=== PATIENT | female | born 1985 ===

== ENCOUNTER 2021-02-28 09:57 | Emergency (ER) | payer OTHER, SELFPAY ==
--- NOTE | ~2021-02-28 | XR_ITS ---
EXAMINATION: XR SHOULDER, RIGHT CLINICAL INFORMATION: Right shoulder pain. COMPARISON: Chest radiographs dated 07/06/2015. TECHNIQUE: Three views of the right shoulder. FINDINGS: There is malalignment of the right acromioclavicular joint with the distal right clavicle position approximately 17 mm superior to the acromion. There is no acute fracture. The right glenohumeral joint is intact. The soft tissues are unremarkable. XR/XR shoulder RT min 2V IMPRESSION: Right acromioclavicular grade 2/3 separation of indeterminate age. No acute fracture.
[2021-02-28 10:48] VITALS: BP 155/98; PULSE 100; RESP 18; TEMP 37.1; O2SAT 95; BMI 35.4
--- NOTE | 2021-02-28 11:10 | ED_ITS ---
HPI - Extremity Problem General Chief complaint: Extremity Injury, Upper Stated complaint: R SHOULDER PAIN Time Seen by Provider: 02/28/21 10:20 Source: patient Mode of arrival: ambulatory Limitations: no limitations History of Present Illness HPI Narrative: 36 y/o female presents to the ER with right shoulder pain s/p fall last night. She reports drinking a lot of alcohol and then smoking a cigarette which she never does. She got lightheaded and dizzy and fell onto her right shoulder. She did not hit her head or lose consciosness. She woke up this morning with some bruising on her shoulder and pain with movement. No numbness, tingling or weakness. MD Complaint: joint paint Onset (ago): hour(s) Pain Consistency: constant Location: right and upper extremity Severity scale (1-10): 6 Quality: aching Radiation: none Relieving factors: immobilization and rest Exacerbating factors: range of motion and palpation Associated symptoms: denies other symptoms Related Data Home Medications Medication Instructions Recorded Confirmed fluticasone propionate 50 INTRANASAL 04/10/20 08/27/20 mcg/actuation nasal spray,suspension loratadine 10 mg tablet 10 mg PO DAILY 04/10/20 08/27/20 sodium chloride 0.65 % nasal spray 2 spray INTRANASAL Q2H PRN 04/10/20 08/27/20 aerosol trazodone 50 mg tablet 50 mg PO BEDTIME PRN 08/27/20 08/27/20 Previous Rx's Medication Instructions Recorded blood sugar diagnostic (Freestyle #10 ea 08/04/20 [employer]) blood-glucose meter (FreeStyle #1 ea 08/05/20 Flash System) metformin 500 mg tablet 500 mg PO BID #60 tab 08/23/20 blood-glucose meter (FreeStyle #1 ea 08/27/20 Lite Meter) lancets 28 gauge (FreeStyle #100 ea 08/27/20 Lancets) omeprazole 20 mg capsule,delayed 20 mg PO DAILY 90 Days #90 cap 09/23/20 release cyclobenzaprine 10 mg tablet 10 mg PO BEDTIME 30 Days #30 tab 11/01/20 sennosides 8.6 mg tablet (Senna 17.2 mg PO BEDTIME PRN 30 Days #60 11/01/20 Laxative) tab phentermine 37.5 mg tablet 37.5 mg PO DAILY 30 Days #30 tab 01/12/21 ibuprofen 800 mg tablet 800 mg PO TID PRN #90 tab 01/26/21 ibuprofen 600 mg tablet 600 mg PO Q8H PRN #14 tab 02/28/21 Allergies Allergy/AdvReac Type Severity Reaction Status Date / Time No Known Allergies Allergy Verified 08/27/20 14:42 Review of Systems Review of Systems: Constitutional: No Fever, No Chills ENT/Mouth: No sore throat, No Rhinorrhea, No Swallowing Difficulty Eyes: No Eye Pain, No Swelling, No Redness Cardiovascular: No Chest Pain, No SOB Gastrointestinal: + Nausea, No Vomiting, No Diarrhea, No abdominal Pain Genitourinary: No Dysuria, No Urinary Frequency, No Hematuria Musculoskeletal: + joint pain, No Myalgias Skin: + Skin Lesions, No rash Neuro: No Weakness, No Numbness, No Dizziness, + Headache Psych: + Anxiety/Panic, No Depression Heme/Lymph: + Bruising PMFSH Past Medical History Medical History Acid reflux Diabetes Diabetes Kidney stone Lower abdominal pain Surgical History History of appendectomy History of dilatation and curettage Status post panniculectomy Tubal ligation status Family History Family History Father No problems noted. Mother No problems noted. Social History Social History (Updated 08/27/20 @ 14:44 by Ana Winter MD) Alcohol intake: current Alcohol intake frequency: holidays/special occasions only Alcohol type: wine Advance Directives: No Advance Directives Information Provided: No Patient : No Physical Exam Vital Signs: Vital Signs: Last Vital Signs Temp 98.8 F 02/28/21 10:48 Pulse 100 02/28/21 10:48 Resp 18 02/28/21 10:48 BP 155/98 H 02/28/21 10:48 Pulse Ox 95 02/28/21 10:48 Body Mass Index 35.4 Appearance: Alert. Oriented X3. No acute distress. HEENT: normal inspection CVS: Normal heart rate and rhythm. Pulses normal. Respiratory: No respiratory distress. Skin: Skin warm and dry. Normal skin color. Normal skin turgor. No rashes. Extremities: right shoulder with minor abrasion laterally and small area of ecchymosis posteriorly. AC joint with palpable separation. she is able to abduct her shoulder but with discomfort. NV intact distally. Neuro: Oriented X 3. No motor deficit. No sensory deficit. Course Course Course Narrative: 36 y/o female presenting with right shoulder pain s/p fall. XR with grade AC joint separation. Sling ordered as well as NSAIDS. She will follow up with Orthopedics. Stable for d/c home with outpatient follow up Critical Care Time Critical Care Time Critical Care Time: No Discharge Plan Discharge Clinical Impression: Acromioclavicular joint separation, type 2 Qualifiers: Encounter type: initial encounter Laterality: right Qualified Code(s): S43.101A - Unspecified dislocation of right acromioclavicular joint, initial encounter Patient Disposition: Home, Self-Care Instructions: Acromioclavicular Separation (ED) Additional Instructions: Wear the sling until you are seen by the [facility]. Use ice several times per day as needed for pain. Take the prescribed anti-inflammatory as needed for pain. If you develop new or worsening symptoms call 911 or come back to the ER for further evaluation. Prescriptions: New ibuprofen 600 mg tablet 600 mg PO Q8H PRN (Reason: pain) Qty: 14 RF: 0 No Action metformin 500 mg tablet 500 mg PO BID Qty: 60 RF: 0 omeprazole 20 mg capsule,delayed release(DR/EC) 20 mg PO DAILY 90 Days Qty: 90 RF: 3 sennosides [Senna Laxative] 8.6 mg tablet 17.2 mg PO BEDTIME PRN (Reason: constipation) 30 Days Qty: 60 RF: 4 cyclobenzaprine 10 mg tablet 10 mg PO BEDTIME 30 Days Qty: 30 RF: 1 phentermine 37.5 mg tablet 37.5 mg PO DAILY 30 Days Qty: 30 RF: 0 ibuprofen 800 mg tablet 800 mg PO TID PRN (Reason: for cramps) Qty: 90 RF: 3 sodium chloride 0.65 % aerosol,spray 2 spray intranasal Q2H PRNRF: 0 loratadine 10 mg tablet 10 mg PO DAILY RF: 0 fluticasone propionate 50 mcg/actuation spray,suspension intranasal RF: 0 (DME) Freestyle [employer] Strip See Rx Instructions .ROUTE .MEDSUPPLY Qty: 10 RF: 0 (DME) blood-glucose meter [FreeStyle Flash System] Kit See Rx Instructions .ROUTE .MEDSUPPLY Qty: 1 RF: 0 trazodone 50 mg tablet 50 mg PO BEDTIME PRNRF: 0 (DME) blood-glucose meter [FreeStyle Lite Meter] Kit See Rx Instructions .ROUTE .MEDSUPPLY Qty: 1 RF: 0 (DME) lancets [FreeStyle Lancets] 28 gauge misc See Rx Instructions .ROUTE .MEDSUPPLY Qty: 100 RF: 11 Referrals: Calos Gavin PA-C [Physician Screen Tender Helper] - 3 days Stand Alone Forms: Work/School Release
[2021-02-28] MEDS: Ibuprofen 600 MG TABLET PO (11:20)
[2021-02-28 11:52] VITALS: RESP 18
== END 2021-02-28 11:56 | disposition home or self-care (01) ==
PROVIDERS: Emergency Provider Emergency Medicine; PCP Internal Medicine
DX: S43.101A Unspecified dislocation of right acromioclavicular joint, initial encounter (principal); M25.511 Pain in right shoulder; R42 Dizziness and giddiness; X58.XXXA Exposure to other specified factors, initial encounter; Y93.9 Activity, unspecified; Y92.9 Unspecified place or not applicable; Y99.9 Unspecified external cause status; Z79.899 Other long term (current) drug therapy
CPT/HCPCS: 73030; 99283; 99284

== ENCOUNTER 2021-03-02 10:44 | Emergency (ER) | payer OTHER, SELFPAY ==
[2021-03-02 11:36] VITALS: BP 140/92; PULSE 97; RESP 18; TEMP 36.6; O2SAT 98; BMI 35.4
--- NOTE | 2021-03-02 12:34 | ED_ITS ---
HPI - Extremity Injury (Upper) General Chief Complaint: Extremity Injury, Upper Stated Complaint: rt shoulder pain Time Seen by Provider: 03/02/21 12:29 Source: patient Mode of arrival: ambulatory Limitations: language barrier (Cameroonian-speaking) History of Present Illness HPI narrative: 30-year-old female presenting to the ER with complaints of right shoulder pain after shoe had a fall on 02/27/2021. She was seen here on 02/28/2021 and was diagnosed with right AC grade 2/3 separation of indeterminate age no acute fracture. She was given Motrin and a sling although she reports no symptomatic relief and she is asking for something stronger as her appointment for the Orthopedic is on the . She reports that she also called her primary care provider and there is no appointment until June. She is asking for another referral to a different orthopedic because she reports that they gave her an appointment for 03/10/2021 and she wants a sooner appointment. She denies any new injuries complaints or concerns at this time. MD complaint: injury to: right and shoulder Onset (ago): day(s) (4 days) Other injuries: none Handedness: right Severity: severe Severity scale (1-10): >10 Relieving factors: none Exacerbating factors: movement of extremity Context: fall Associated symptoms: denies other symptoms Treatments prior to arrival: NSAIDS and other (Shoulder immobilizer) Related Data Home Medications Medication Instructions Recorded Confirmed fluticasone propionate 50 INTRANASAL 04/10/20 08/27/20 mcg/actuation nasal spray,suspension loratadine 10 mg tablet 10 mg PO DAILY 04/10/20 08/27/20 sodium chloride 0.65 % nasal spray 2 spray INTRANASAL Q2H PRN 04/10/20 08/27/20 aerosol trazodone 50 mg tablet 50 mg PO BEDTIME PRN 08/27/20 08/27/20 Previous Rx's Medication Instructions Recorded blood sugar diagnostic (Freestyle #10 ea 08/04/20 [employer]) blood-glucose meter (FreeStyle #1 ea 08/05/20 Flash System) metformin 500 mg tablet 500 mg PO BID #60 tab 08/23/20 blood-glucose meter (FreeStyle #1 ea 08/27/20 Lite Meter) lancets 28 gauge (FreeStyle #100 ea 08/27/20 Lancets) omeprazole 20 mg capsule,delayed 20 mg PO DAILY 90 Days #90 cap 09/23/20 release cyclobenzaprine 10 mg tablet 10 mg PO BEDTIME 30 Days #30 tab 11/01/20 sennosides 8.6 mg tablet (Senna 17.2 mg PO BEDTIME PRN 30 Days #60 11/01/20 Laxative) tab phentermine 37.5 mg tablet 37.5 mg PO DAILY 30 Days #30 tab 01/12/21 ibuprofen 800 mg tablet 800 mg PO TID PRN #90 tab 01/26/21 ibuprofen 600 mg tablet 600 mg PO Q8H PRN #14 tab 02/28/21 acetaminophen 500 mg tablet 1,000 mg PO QID PRN #14 tab 03/02/21 (Tylenol Extra Strength) ibuprofen 800 mg tablet 800 mg PO Q8H PRN #14 tab 03/02/21 oxycodone 5 mg tablet 5 mg PO Q6H PRN #14 tab 03/02/21 Allergies Allergy/AdvReac Type Severity Reaction Status Date / Time No Known Allergies Allergy Verified 08/27/20 14:42 Review of Systems Review of Systems: Constitutional : No Weight loss, No Fever, No Chills, No Night Sweats, No Fatigue, No Malaise ENT/Mouth : No Hearing loss, No Ear Pain, No Nasal Congestion, No Sinus Pain, No Hoarseness, No sore throat, No Rhinorrhea, No Swallowing Difficulty Eyes: No Eye Pain, No Swelling, No Redness, No Foreign Body, No Discharge, No Vision Changes Cardiovascular : No Chest Pain, No SOB, No Dyspnea on Exertion, No Orthopnea, No Edema, No Palpitations Respiratory : No Cough, No Sputum, No Wheezing, No Smoke Exposure, No Dyspnea Gastrointestinal : No Nausea, No Vomiting, No Diarrhea, No Constipation, No abdominal Pain, No Hematochezia, No Melena Genitourinary : no irregular bleeding, No Dysuria, No Urinary Frequency, No Hematuria, No Urinary Incontinence, No Urgency, No Flank Pain, No Urinary Flow Changes, No Hesitancy Musculoskeletal : + joint pain, No Myalgias, No Joint Swelling Skin : No Skin Lesions, No rash Neuro : No Weakness, No Numbness, No Paresthesias, No Loss of Consciousness, No Dizziness, No Headache Psych : No Anxiety/Panic, No Depression, No SI/HI/AH/VH, No Social Issues, Heme/Lymph: No Bruising, No Bleeding,No Lymphadenopathy Endocrine : No Polyuria, No Polydipsia, No Temperature Intolerance Yes all other systems are reviewed and are negative [facility] Past Medical History Attestation statement: The following information was validated with the patient. Medical History Acid reflux Diabetes Diabetes Kidney stone Lower abdominal pain Surgical History History of appendectomy History of dilatation and curettage Status post panniculectomy Tubal ligation status Family History Family History Father No problems noted. Mother No problems noted. Social History Social History Alcohol intake: current Alcohol intake frequency: holidays/special occasions only Alcohol type: wine Advance Directives: No Patient : No Physical Exam Vital Signs: Vital Signs: Last Vital Signs Temp 98 F 03/02/21 11:36 Pulse 97 03/02/21 11:36 Resp 18 03/02/21 11:36 BP 140/92 H 03/02/21 11:36 Pulse Ox 98 03/02/21 11:36 Body Mass Index 35.4 vital signs have been reviewed as normal and appeared to be correct. Blood pressure hypertensive 140/92. Heart rate normal. Respiration rate normal. Temperature normal. Oxygen saturation normal. Appearance: Alert. Oriented X3. No acute distress. Head: Normal external exam. Normocephalic. Atraumatic. Eyes: PERRLA. EOMI. Conjunctiva and sclera normal. Eyelids normal. ENT: Pharynx normal. Uvula midline. Moist mucous membranes. Neck: Normal inspection. Neck supple. FROM. No adenopathy. No meningeal signs. CVS: Normal heart rate and rhythm. Heart sound normal. Pulses normal throughout. No murmurs/rales/gallops. Respiratory: No respiratory distress. Painless inspiration. Breath sounds normal. No wheezes/rales/rhonchi noted. Chest nontender. No accessory muscle usage noted or decreased air movement noted. Back: Full range of motion noted. No rashes/lesion/induration/fluctuance or signs of infection noted. Skin: Skin warm and dry. Normal skin color. Normal skin turgor. No kelby hes/lesions/lacerations noted. Extremities: Patient with tenderness to palpation to the right shoulder with limited range of motion due to pain. Otherwise no obvious ligamentous or tendon injury. All other Extremities exhibit normal range of motion and nontender. Neuro: Oriented X 3. No motor deficit. No sensory deficit. Reflexes normal. Normal steady gait. No focal neuro deficits noted. Vascular: + radial pulses/+ 2 distal pedal pulses/+2 dorsalis pedis b/l. Normal cap refill. No cyanosis noted to upper extremity nails and lower extremity toes nails. Course Course Course Narrative: Patient with an AC separation grade 2 she has a follow-up appointment on the with Orthopedics requesting a new Orthopedics for sooner day though I told her that that is probably the soonest states she will be able to get. She also tried to follow-up with her primary they do not have an open appointment until June. Will DC home with symptomatic treatment and instructions to follow-up with orthopedics as scheduled and to return if any new or worsening symptoms. Patient understands agrees with this plan. MDM - Extremity Injury (Upper) Medical Records Attestation: I reviewed the patient's medical records. Discharge Plan Discharge Clinical Impression: Acromioclavicular joint separation, type 2, Pain Patient Disposition: Home, Self-Care Instructions: Acromioclavicular Separation (ED) Additional Instructions: [facility] at [address] [place] [facility], [facility] [address] at [phone] is another Orthopedics that you can call although we usually prefer use our Orthopedics Prescriptions: New ibuprofen 800 mg tablet 800 mg PO Q8H PRN (Reason: pain) Qty: 14 RF: 0 acetaminophen [Tylenol Extra Strength] 500 mg tablet 1,000 mg PO QID PRN (Reason: fever or pain) Qty: 14 RF: 0 oxycodone 5 mg tablet 5 mg PO Q6H PRN (Reason: pain) Qty: 14 RF: 0 No Action metformin 500 mg tablet 500 mg PO BID Qty: 60 RF: 0 omeprazole 20 mg capsule,delayed release(DR/EC) 20 mg PO DAILY 90 Days Qty: 90 RF: 3 sennosides [Senna Laxative] 8.6 mg tablet 17.2 mg PO BEDTIME PRN (Reason: constipation) 30 Days Qty: 60 RF: 4 cyclobenzaprine 10 mg tablet 10 mg PO BEDTIME 30 Days Qty: 30 RF: 1 phentermine 37.5 mg tablet 37.5 mg PO DAILY 30 Days Qty: 30 RF: 0 ibuprofen 800 mg tablet 800 mg PO TID PRN (Reason: for cramps) Qty: 90 RF: 3 ibuprofen 600 mg tablet 600 mg PO Q8H PRN (Reason: pain) Qty: 14 RF: 0 sodium chloride 0.65 % aerosol,spray 2 spray intranasal Q2H PRNRF: 0 loratadine 10 mg tablet 10 mg PO DAILY RF: 0 fluticasone propionate 50 mcg/actuation spray,suspension intranasal RF: 0 (DME) Freestyle [employer] Strip See Rx Instructions .ROUTE .MEDSUPPLY Qty: 10 RF: 0 (DME) blood-glucose meter [FreeStyle Flash System] Kit See Rx Instructions .ROUTE .MEDSUPPLY Qty: 1 RF: 0 trazodone 50 mg tablet 50 mg PO BEDTIME PRNRF: 0 (DME) blood-glucose meter [FreeStyle Lite Meter] Kit See Rx Instructions .ROUTE .MEDSUPPLY Qty: 1 RF: 0 (DME) lancets [FreeStyle Lancets] 28 gauge misc See Rx Instructions .ROUTE .MEDSUPPLY Qty: 100 RF: 11 Referrals: Charly Alberto MD [Physician] - 2 days Ana Che MD [Primary Care Provider] - 2 days Stand Alone Forms: Work/School Release Interventions: ED Discharge Assessment Last Done: 03/02/21 12:48 Discharge Date/Time: 03/02/21 12:49 Print Language: Cameroonian
== END 2021-03-02 12:49 | disposition home or self-care (01) ==
PROVIDERS: Emergency Provider Emergency Medicine; PCP Internal Medicine
DX: S43.101A Unspecified dislocation of right acromioclavicular joint, initial encounter (principal); M25.511 Pain in right shoulder; E11.9 Type 2 diabetes mellitus without complications; W01.0XXA Fall on same level from slipping, tripping and stumbling without subsequent striking against object, initial encounter; Y93.9 Activity, unspecified; Y92.9 Unspecified place or not applicable; Y99.9 Unspecified external cause status; Z79.899 Other long term (current) drug therapy
CPT/HCPCS: 99283

== ENCOUNTER 2021-03-03 07:28 | Outpatient (REF) | payer OTHER, SELFPAY ==
[2021-03-03 08:12] LABS: Hematocrit 38.2 % (37-47); Hemoglobin 12.3 g/dl (12.0-16.0); Mean Corpuscular HGB Conc 32.2 g/dl (31.0-35.0); Mean Corpuscular Hemoglobin 27.6 pg (27.0-33.0); Mean Corpuscular Volume 85.8 fL (80-98); Platelet Count 261 X10*3/uL (160-400); Red Blood Count 4.45 X10*6/uL (4.20-5.50); Red Cell Distribution Width 13.1 % (11.0-16.0); White Blood Count 7.3 X10*3/uL (4.8-10.8)
[2021-03-03 08:27] LABS: Estimated Average Glucose 192 mg/dL; Hemoglobin A1c % 8.3 %
[2021-03-03 09:01] LABS: Alanine Aminotransferase 23 U/L (0-31); Albumin Level 3.9 g/dL (3.5-5.0); Alkaline Phosphatase 106 U/L (39-117); Anion Gap 16 (12-20); Aspartate Amino Transferase 21 U/L (5-31); Bilirubin Total 0.5 mg/dL (0.0-1.0); Blood Urea Nitrogen 12 mg/dL (9-16); Calcium 8.7 mg/dL (8.4-10.2); Carbon Dioxide 19 mmol/L (22-29); Chloride 108 mmol/L (96-108); Cholesterol 221 mg/dL; Estimated Glomerular Filt Rate > 60; Glucose Random 213 mg/dL (60-115); HDL Cholesterol 57 mg/dL; LDL Cholesterol Calculated 145 mg/dl; Potassium 4.6 mmol/L (3.3-5.1); Sodium 138 mmol/L (135-145); Total Protein 6.8 g/dL (6.5-8.0); Triglycerides 96 mg/dL
[2021-03-03 09:04] LABS: Free T4 (Free Thyroxine) 0.96 ng/dL (0.71-1.85); Insulin 4 uU/mL (2-29); Thyroid Stimulating Hormone 3.22 uIU/mL (0.32-4.0)
[2021-03-04 19:17] LABS: Lutenizing Hormone 9.8 mIU/mL
[2021-03-06 16:02] LABS: Thyroid Stimulating Immunoglob <89 % baseline (<140)
[2021-03-07 09:21] LABS: Thyroglobulin Antibodies 1 IU/mL (< or = 1); Thyroid Peroxidase Antibodies 1 IU/mL (<9)
[2021-03-07 12:47] LABS: Triiodothyronine T3 Reverse 14 ng/dL (8-25)
[2021-03-08 20:57] LABS: Thyrotropin Receptor Antibody <1.00 IU/L (<=2.00)
[2021-03-09 22:06] LABS: Progesterone 0.1 ng/mL
[2021-03-11 13:21] LABS: Testosterone, Free 4.1 pg/mL (0.1-6.4); Testosterone, Total 25 ng/dL (2-45)
[2021-03-12 21:51] LABS: Estradiol, Ultrasensitive 47 pg/mL
[2021-03-18 22:22] LABS: Dihydrotestosterone 5 ng/dL (< OR = 20)
== END 2021-03-03 07:29 | disposition home or self-care (01) ==
LOC: HO.LAB 07:28
PROVIDERS: PCP Internal Medicine; Visit Provider Nurse Practitioner Adult Health
DX: E66.01 Morbid (severe) obesity due to excess calories (principal); E11.9 Type 2 diabetes mellitus without complications; E55.9 Vitamin D deficiency, unspecified
CPT/HCPCS: 36415; 80053; 80061; 82642; 82670; 82681; 83001; 83002; 83036; 83520; 83525; 84144; 84402; 84403; 84439; 84443; 84445; 84481; 84482; 85027; 86376; 86800

== ENCOUNTER 2021-03-13 07:28 | Outpatient (REF) | payer OTHER, SELFPAY | END 2021-03-13 07:29 | disposition home or self-care (01) | LOC: HO.HOSX 07:28 | PROVIDERS: Visit Provider Physician Assistant | DX: Z13.89 Encounter for screening for other disorder (principal) ==

== ENCOUNTER 2021-06-02 20:24 | Emergency (ER) | payer OTHER, SELFPAY ==
--- NOTE | ~2021-06-02 | XR_ITS ---
EXAMINATION: XR CHEST CLINICAL INFORMATION: Covid. Shortness of breath COMPARISON: 07/06/2015 TECHNIQUE: Frontal view of the chest was obtained. FINDINGS: Normal symmetric lung volumes. Left lower lobe streaky opacity, likely subsegmental atelectasis. No pleural effusion. No pneumothorax. Cardiomediastinal silhouette and pulmonary vascularity are within normal limits. No acute osseous abnormalities. XR/XR chest 1V IMPRESSION: No acute findings
[2021-06-02 23:04] VITALS: BP 149/105; PULSE 124; RESP 20; TEMP 37.8; O2SAT 99; BMI 34.3
[2021-06-02 23:37] LABS: COVID-19 Test Positive (Negative); IDNOW Serial# 9DD0AD1C
--- NOTE | 2021-06-03 02:33 | ED.URI ---
HPI - URI/Sore Throat General Chief Complaint: Upper Respiratory Symptoms Stated Complaint: +home covid test sob chest congestion Time Seen by Provider: 06/03/21 02:32 Source: patient Mode of arrival: ambulatory Limitations: no limitations History of Present Illness HPI Narrative: 36-year-old female otherwise healthy came in for 3 days of shortness of breath, generalized body ache, fever. Despite patient took 2 Pfizer vaccination for COVID she took a home test which was positive. Patient came to the emergency room confirmed positive for COVID. No other sick contact. Related Data Home Medications Medication Instructions Recorded Confirmed fluticasone propionate 50 INTRANASAL 04/10/20 03/03/21 mcg/actuation nasal spray,suspension sodium chloride 0.65 % nasal spray 2 spray INTRANASAL Q2H PRN 04/10/20 03/03/21 aerosol trazodone 50 mg tablet 50 mg PO BEDTIME PRN 08/27/20 03/03/21 Previous Rx's Medication Instructions Recorded lancets 28 gauge (FreeStyle #100 ea 08/27/20 Lancets) omeprazole 20 mg capsule,delayed 20 mg PO DAILY 90 Days #90 cap 09/23/20 release cyclobenzaprine 10 mg tablet 10 mg PO BEDTIME 30 Days #30 tab 11/01/20 acetaminophen 500 mg tablet 1,000 mg PO QID PRN #14 tab 03/02/21 (Tylenol Extra Strength) ibuprofen 800 mg tablet 800 mg PO Q8H PRN #14 tab 03/02/21 atorvastatin 20 mg tablet 20 mg PO BEDTIME 90 Days #90 tab 03/03/21 lisinopril 5 mg tablet 5 mg PO DAILY 90 Days #90 tab 03/03/21 loratadine 10 mg tablet 10 mg PO DAILY 90 Days #90 tab 03/03/21 oxycodone 5 mg tablet 5 mg PO Q6H PRN 15 Days #60 tab 03/03/21 phentermine 37.5 mg tablet 37.5 mg PO DAILY 30 Days #30 tab 04/01/21 blood sugar diagnostic (FreeStyle #50 ea 04/02/21 Test) blood-glucose meter (FreeStyle #1 ea 05/01/21 Lite Meter) sennosides 8.6 mg tablet (Senna 17.2 mg PO BEDTIME PRN 30 Days #60 05/01/21 Laxative) tab metformin 500 mg tablet 500 mg PO BID #60 tab 05/22/21 albuterol sulfate 90 mcg/actuation 1 inh INHALATION QID PRN #8.5 g 06/03/21 aerosol inhaler Allergies Allergy/AdvReac Type Severity Reaction Status Date / Time No Known Allergies Allergy Verified 03/03/21 13:25 Review of Systems Review of Systems: All other systems are reviewed and are negative Constitutional: Reports as per HPI and Reports no additional constitutional complaints Eyes: Reports as per HPI and Reports no additional eye complaints Reports system reviewed and no additional complaints, except as documented Cardiovascular: Reports as per HPI and Reports no additional cardiovascular complaints Respiratory: Reports as per HPI and Reports no additional respiratory complaints Gastrointestinal: Reports as per HPI and Reports no additional gastrointestinal complaints Genitourinary: Reports no additional female genitourinary complaints Musculoskeletal: Reports no additional musculoskeletal complaints Skin/Breast: Reports system reviewed and no additional complaints, except as docu Psychiatric: Reports no additional psychiatric complaints Endocrine: Reports no additional endocrine complaints Hematologic/Lymphatic: Reports no additional hematologic/lymphatic complaints Allergic/Immunologic: Reports no additional allergic/immunologic complaints Reports system reviewed and no additional complaints, except as documented and Reports Abnormal speech present [facility] Past Medical History Medical History 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 Mother No problems noted. Social History Social History Housing: Apartment Alcohol intake: current Alcohol intake frequency: holidays/special occasions only Alcohol type: wine Patient Tobacco Use Status: Former Tobacco user Tobacco use type: Cigarette e-Cigarette/Vaping Use: Never Used Second Hand Smoke Exposure: No Advance Directives: No Advance Directives Information Provided: No service: No Current occupational status: employed Current occupational exposures/hazards: No Physical Exam Vital Signs: Vital Signs: Last Vital Signs Temp 100.0 F 06/02/21 23:04 Pulse 124 H 06/02/21 23:04 Resp 20 06/02/21 23:04 BP 149/105 H 06/02/21 23:04 Pulse Ox 99 06/02/21 23:04 BMI result Body Mass Index 34.3 Vital signs have been reviewed as appeared to be correct. Blood pressure normal. Heart rate elevated. Respiration rate normal. Temperature normal. Oxygen saturation normal. Appearance: Alert. Oriented X3. No acute distress. Head: Normal external exam. Normocephalic. Atraumatic. No Plascencia signs noted. No raccoon eyes noted Eyes: PERRLA. EOMI. Conjunctiva and sclera normal. Eyelids normal. ENT: TM's Normal. Pharynx normal. Uvula midline. Moist mucous membranes. No trismus noted. No drooling noted. No muffled voice noted. Neck: Normal inspection. Neck supple. FROM. No adenopathy. Thyroid Normal. No meningeal signs. No neck mass noted. CVS: Tachycardia, Heart sound normal. No murmurs noted. Pulses normal throughout. Respiratory: No respiratory distress. Painless inspiration. Breath sounds normal. No wheezes/rales/rhonchi noted. Chest nontender. No accessory muscle usage noted or decreased air movement noted. Abdomen: Soft and nontender. Bowel sounds normal in all 4 quadrants. No distention noted. No organomegaly noted. No visible injury noted. Back: No CVA tenderness. Full range of motion noted. Skin: Skin warm and dry. Normal skin color. Normal skin turgor. No rashes/lesions/lacerations noted. Extremities: No lower extremity edema. Extremities exhibit normal range of motion. Extremities nontender. Neuro: Oriented X 3. Cranial nerve exam: II-XII are grossly intact No motor deficit. No sensory deficit. Reflexes normal. Course Course Course Narrative: Assessment and plan. 36-year-old female was COVID-19 infection, physical exam stable patient was normal O2 sat of 99% on room air respiratory rate of 20 patient is tachycardic because low-grade fever. History of sporadic wheezing will prescribe albuterol. Patient does not meet criteria for hospitalization,nor monoclonal antibodies therapy MDM - URI/Sore Throat Lab Data Attestation: I reviewed the patient's lab results. Labs: Lab Results 06/02/21 Range/Units 23:26 COVID-19 ([facility]) Positive A (Negative) COVID-19 Clin Com See Note Imaging Data Chest x-ray: Attestation: I personally reviewed and interpreted this imaging study as follows: Radiologist's impression: No acute pathology. Discharge Plan Discharge Clinical Impression: COVID-19 virus infection Patient Disposition: Home, Self-Care Instructions: COVID-19 (Coronavirus Disease 2019) (ED) Additional Instructions: Frequent handwashing, wears a face mask at all times, keep social distancing, drink plenty of fluids, use Tylenol [id number] if needed for fever or pain. Return if any worsening of shortness of breath. Prescriptions: New albuterol sulfate 90 mcg/actuation HFA aerosol inhaler 1 inh inhalation QID PRN (Reason: shortness of breath or wheezing) Qty: 8.5 RF: 0 No Action omeprazole 20 mg capsule,delayed release(DR/EC) 20 mg PO DAILY 90 Days Qty: 90 RF: 3 cyclobenzaprine 10 mg tablet 10 mg PO BEDTIME 30 Days Qty: 30 RF: 1 phentermine 37.5 mg tablet 37.5 mg PO DAILY 30 Days Qty: 30 RF: 0 (DME) FreeStyle Test Strip See Rx Instructions .Route Qty: 50 RF: 11 sennosides [Senna Laxative] 8.6 mg tablet 17.2 mg PO BEDTIME PRN (Reason: constipation) 30 Days Qty: 60 RF: 4 (DME) blood-glucose meter [FreeStyle Lite Meter] Kit See Rx Instructions .ROUTE .MEDSUPPLY Qty: 1 RF: 0 metformin 500 mg tablet 500 mg PO BID Qty: 60 RF: 0 ibuprofen 800 mg tablet 800 mg PO Q8H PRN (Reason: pain) Qty: 14 RF: 0 acetaminophen [Tylenol Extra Strength] 500 mg tablet 1,000 mg PO QID PRN (Reason: fever or pain) Qty: 14 RF: 0 sodium chloride 0.65 % aerosol,spray 2 spray intranasal Q2H PRNRF: 0 fluticasone propionate 50 mcg/actuation spray,suspension intranasal RF: 0 trazodone 50 mg tablet 50 mg PO BEDTIME PRNRF: 0 (DME) lancets [FreeStyle Lancets] 28 gauge misc See Rx Instructions .ROUTE .MEDSUPPLY Qty: 100 RF: 11 lisinopril 5 mg tablet 5 mg PO DAILY 90 Days Qty: 90 RF: 1 atorvastatin 20 mg tablet 20 mg PO BEDTIME 90 Days Qty: 90 RF: 1 loratadine 10 mg tablet 10 mg PO DAILY 90 Days Qty: 90 RF: 1 oxycodone 5 mg tablet 5 mg PO Q6H PRN (Reason: pain) 15 Days Qty: 60 RF: 0 Referrals: Ana Che MD [Primary Care Provider] - 2 days Stand Alone Forms: Work/School Release
[2021-06-03] MEDS: Acetaminophen 325 MG TABLET 650 MG PO (02:49)
[2021-06-03] MEDS: Albuterol Sulfate 90 MCG 8 GM INHALER 2 PUFF INHALE (03:37)
== END 2021-06-03 03:39 | disposition home or self-care (01) ==
PROVIDERS: Emergency Provider Emergency Medicine; PCP Internal Medicine
DX: U07.1 COVID-19 (principal); R06.02 Shortness of breath; I10 Essential (primary) hypertension; E11.9 Type 2 diabetes mellitus without complications; E78.00 Pure hypercholesterolemia, unspecified; Z79.02 Long term (current) use of antithrombotics/antiplatelets; Z79.899 Other long term (current) drug therapy
CPT/HCPCS: 71045; 87635; 99283; 99284

== ENCOUNTER 2023-02-07 14:21 | Outpatient (AMB) | payer OTHER, SELFPAY ==
--- NOTE | 2023-02-07 14:23 | MHC.PC.OV ---
Vital Signs 02/07/23 14:27 Height 5 ft 3 in Weight 188 lb BMI 33.3 BP 112/80 Blood Pressure Location Lt brachial Position Sitting Intake Visit Reasons: Annual Exam Intake Note: Patient here for a physical exam Stamping Mill Tender Required: No Accompanied by: Self / Same As Patient Allergies No Known Allergies Allergy (Verified 02/07/23 14:41) Medication List - Last Reconciled 02/07/23 by Ana Winter MD albuterol sulfate 90 mcg/actuation 1 inh inhalation QID PRN atorvastatin 20 mg PO BEDTIME 90 days blood sugar diagnostic (FreeStyle Test strips) Use 1 test strip twice a day blood-glucose meter (FreeStyle Lite Meter kit) As directed cyclobenzaprine 10 mg PO BEDTIME 30 days dulaglutide (Trulicity) 0.75 mg (0.5 mL) subcut QWEEK fluticasone propionate 50 mcg/actuation 1 spray intranasal DAILY 30 days ibuprofen 800 mg PO Q8H PRN lancets (FreeStyle Lancets) Use 1 lancet once a day lisinopril 5 mg PO DAILY 90 days loratadine 10 mg PO DAILY 90 days metformin 1,000 mg PO BID 90 days omeprazole 20 mg PO DAILY 90 days polymyxin B sulf-trimethoprim 10,000 unit- 1 mg/mL 1 drp ophthalmic (eye) Q4H 7 days semaglutide (Ozempic) 0.25 mg (0.368 mL) subcut QWEEK 30 days sennosides (Senna Laxative) 17.2 mg (2 x 8.6 mg) PO BEDTIME PRN 30 days zolpidem 5 mg PO BEDTIME PRN 30 days Tobacco use date assessed: 11/03/22 Dental Screening Dental Screen Date: 02/07/23 Did you have a dental visit in the last 12 months?: Yes Did you have a dental problem in the last 6 months where you did not have access to dental care?: No Was dental information given to patient?: Patient has dentist HPI HPI Comments History of Present Illness Details This is a 37-year-old female with diabetes mellitus type 2 that comes for her physical exam. A1c not on goal and I will replace Trulicity with Ozempic. Pap smear was over 3 years ago. No chest pain or shortness of breath. 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 Mother Diabetes mellitus Essential hypertension Stroke Hypothyroidism Coronary artery disease Mental health disorder Social History Housing: Apartment Alcohol intake: current Alcohol intake frequency: holidays/special occasions only Alcohol type: wine Patient Tobacco Use Status: Former Tobacco user Tobacco use type: Cigarette e-Cigarette/Vaping Use: Never Used Second Hand Smoke Exposure: No service: No Current occupational status: employed Current occupational exposures/hazards: No Cognitive needs: No Hearing needs: No Vision needs: No Questionnaire Thrive Questionnaire Date Thrive assessed: 11/03/22 TR-7 AMB Questionnaire TR-7 Date TR - 7 assessed: 11/03/22 Source: Developed by Drs. Luiz Karimi, Maine Caputo, Dieudonne Smith and colleagues, with an educational sreekanth from [employer]. Review of Systems Const All systems reviewed & are unremarkable except as noted in HPI and below Eyes Reports no additional complaints, Denies change in vision and Denies other visual disturbances Card Denies chest pain at rest, Denies chest pain with activity, Denies edema, Denies irregular heart rhythm, Denies claudication, Denies dyspnea, Denies dyspnea on exertion, Denies orthopnea, Denies paroxysmal nocturnal dyspnea and Denies slow heart rate Resp Denies cough, Denies dyspnea and Denies dyspnea on exertion GI Denies abdominal pain, Denies change in bowel habits, Denies excessive flatus, Denies nausea and Denies vomiting Denies urinary incontinence, Denies urinary hesitancy and Denies urinary urgency Musc Denies abnormal gait, Denies atrophy, Denies deformity and Denies limited range of motion Skin/Breast Denies bleeding lesions, Denies changing lesions and Denies rash Neuro Denies abnormal gait and Denies lack of coordination Physical exam (Primary Care) Vital Signs: Last Vital Signs BP 112/80 02/07/23 14:27 BMI result Body Mass Index 33.3 Tobacco/Smoking Status: Tobacco use Status Tobacco use date assessed 11/03/22 02/07/23 14:24 Patient Tobacco Use Status Former Tobacco user 02/07/23 14:24 Tobacco use type Cigarette 02/07/23 14:24 e-Cigarette/Vaping Use Never Used 02/07/23 14:24 Thrive Assessment: Date of Thrive Assessment Date Thrive assessed 11/03/22 02/07/23 14:24 Const Orientation/consciousness: patient oriented x3 HENMT Head: Yes normal to inspection, Yes normocephalic and Yes atraumatic Ears: external ears normal Eyes General: appearance normal, both eyes and all related structures Eyelids: Yes eyelids normal Conjunctivae: conjunctivae normal Neck Neck: Yes normal visual inspection and Yes supple Resp Effort & Inspection: normal respiratory effort Auscultation: clear to auscultation bilaterally Cardio Jugular venous distension: no JVD Rate: regular rate Rhythm: regular rhythm Heart sounds: S1 normal heart sound present and S2 normal heart sound present GI Inspection: Yes normal to inspection Palpation (GI): Soft to palpation and nontender Auscultation: normal bowel sounds Skin General skin exam: no rashes or lesions noted Neuro General: patient oriented x3 and no focal motor deficits Extrem General: Yes full ROM Psych Appearance: grossly normal Results AMB Hemoglobin A1c AMB Hemoglobin A1c 7.3 % Last Edit by MONICA Martin on 02/07/23 14:35 Results Reviewed Results Reviewed: Laboratory Last Values Hgb A1c (Clinic) 7.3 % (4.0-6.0) H 02/07/23 14:31 Assessment and Plan Assessment & Plan (1) Physical exam: Code(s): Z00.00 - Encounter for general adult medical examination without abnormal findings Plan: Repeat in a year. (2) Diabetes mellitus: Code(s): E11.9 - Type 2 diabetes mellitus without complications Qualifiers: Diabetes mellitus type: type 2 Diabetes mellitus long term care social worker insulin use: without prison use Diabetes mellitus complication status: with hyperglycemia Qualified Code(s): E11.65 - Type 2 diabetes mellitus with hyperglycemia Plan: Continue metformin. Replace Trulicity with Ozempic. A1c goal is equal or less than 7% Orders: Orders AMB Hemoglobin A1c Today E11.9 - Type 2 diabetes mellitus without complications Lipid Panel Today E78.5 - Hyperlipidemia, unspecified Vitamin D 25-OH Total Today E55.9 - Vitamin D deficiency, unspecified Comprehensive [place]. Panel Fast Today E11.65 - Type 2 diabetes mellitus with hyperglycemia Referrals STATEMENT CLERKS MANAGER Referral Z12.4 - Encounter for screening for malignant neoplasm of cervix Medications: Changed From ibuprofen 800 mg PO Q8H PRN 14 tabs 0RF pain To ibuprofen 800 mg PO Q8H 30 days PRN 90 tabs 0RF pain Refilled semaglutide (Ozempic) for 4 weeks 0.25 mg (0.368 mL) subcut QWEEK 30 days 2 mL 0RF E11.65 - Type 2 diabetes mellitus with hyperglycemia sennosides (Senna Laxative) 17.2 mg (2 x 8.6 mg) PO BEDTIME 30 days PRN 60 tabs 4RF constipation Discontinued dulaglutide (Trulicity) Discontinued Reason: Patient Completed Course 0.75 mg (0.5 mL) subcut QWEEK 2 mL 0RF E11.65 - Type 2 diabetes mellitus with hyperglycemia Coding Level of Care Code Est Pt Prev Care 18-39y(28631) Diagnoses Physical exam Z00.00 Type 2 diabetes mellitus with hyperglycemia, without long-term current use of insulin E11.65 Diabetes mellitus type: type 2 Diabetes mellitus prison insulin use: without long term care social worker use Diabetes mellitus complication status: with hyperglycemia Time Spent (min) 33
[2023-02-07 14:27] VITALS: BP 112/80; BMI 33.3
== END 2023-02-07 14:56 | disposition home or self-care (01) ==
PROVIDERS: PCP Internal Medicine; Visit Provider Internal Medicine
DX: Z00.00 Encounter for general adult medical examination without abnormal findings (principal); E11.65 Type 2 diabetes mellitus with hyperglycemia; E11.9 Type 2 diabetes mellitus without complications
CPT/HCPCS: 83036; 99395

== ENCOUNTER 2023-05-10 13:07 | Outpatient (REF) | payer OTHER, SELFPAY ==
[2023-05-13 02:04] LABS: HPV mRNA E6/E7 rflx Not Detected (Not Detected)
== END 2023-05-10 13:08 | disposition home or self-care (01) ==
LOC: HO.LNP 13:07
PROVIDERS: PCP Internal Medicine; Visit Provider Obstetrics & Gynecology
DX: Z01.419 Encounter for gynecological examination (general) (routine) without abnormal findings (principal); Z11.3 Encounter for screening for infections with a predominantly sexual mode of transmission; Z11.51 Encounter for screening for human papillomavirus (HPV); Z11.59 Encounter for screening for other viral diseases; Z20.2 Contact with and (suspected) exposure to infections with a predominantly sexual mode of transmission; Z98.51 Tubal ligation status
CPT/HCPCS: 87624; 88142; 99386

== ENCOUNTER 2023-05-10 13:07 | Outpatient (AMB) | payer OTHER, SELFPAY ==
--- NOTE | 2023-05-10 13:28 | A.OFFVIS_ITS ---
Intake Vital Signs 05/10/23 13:29 Height 5 ft 3 in Weight 187 lb 6.287 oz BMI 33.2 BP 118/70 Intake Visit Reasons: New patient Annual Intake Note: c/o of vaginal itch Continuous Improvement Manager Required: Yes Continuous Improvement Manager Language: Salon/Spa Manager Name: Marizol ANDERSON Information Interpreted: non-clinical & clinical Mobile Ui Developer: Mobile Ui Developer Present (Marizol ANDERSON) Accompanied by: Self / Same As Patient Allergies No Known Allergies Allergy (Verified 05/10/23 13:32) HPI HPI Comments History of Present Illness Details Presenting for annual exam. No complaints. The patient is interested in STD screening Last Pap/HPV ? 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 Mother Diabetes mellitus Essential hypertension Stroke Hypothyroidism Coronary artery disease Mental health disorder Social History Housing: Apartment Alcohol intake: current Alcohol intake frequency: holidays/special occasions only Alcohol type: wine Patient Tobacco Use Status: Former Tobacco user Tobacco use type: Cigarette e-Cigarette/Vaping Use: Never Used Second Hand Smoke Exposure: No service: No Current occupational status: employed Current occupational exposures/hazards: No Cognitive needs: No Hearing needs: No Vision needs: No Female Reproductive History Menstrual Date of last menstrual period: 04/12/23 Date of last pap smear: 02/19/13 Review of Systems Const All systems reviewed & are unremarkable except as noted in HPI and below Card Reports as per HPI Resp Reports as per HPI GI Reports as per HPI and Reports no additional complaints Reports as per HPI Physical Exam Vital Signs: Last Vital Signs BP 118/70 05/10/23 13:29 BMI result Body Mass Index 33.2 Const General: cooperative, healthy appearing and comfortable Chest Chest palpation & inspection: normal inspection of the chest and normal palpation of entire chest wall Breast/axilla inspection: normal inspection of the breasts and normal inspection of the axillae Breast/axilla palpation: normal palpation of the breasts, normal palpation of the axillae and no axillary lymphadenopathy Resp Effort & Inspection: normal respiratory effort Auscultation: clear to auscultation bilaterally Percussion: percussion normal Cardio Palpation: normal PMI Rate: regular rate Rhythm: regular rhythm Heart sounds: no murmurs and no rubs Peripheral pulses: Peripheral pulses 2+ throughout GI Inspection: Yes normal to inspection Palpation (GI): Soft to palpation, nontender, no guarding, not rigid and No hepatosplenomegaly present Percussion: Yes normal to percussion Auscultation: normal bowel sounds Rectal Exam - Female: deferred General: Yes bladder normal to palpation External Female Exam: No lesion Speculum Exam - Vagina: normal appearance of the vagina, normal palpation, normal vaginal discharge and not erythematous Speculum Exam - Cervix: normal appearance of the cervix and normal palpation Bimanual exam- vagina & uterus: normal bimanual exam, normal palpation, uterine size normal, bladder normal to palpation, consistency normal and normal palpation Bimanual Exam- Adnexa, other: normal adnexae, no masses and no tenderness Assessment & Plan Assessment & Plan (1) Well woman exam: Code(s): Z01.419 - Encounter for gynecological examination (general) (routine) without ab normal findings Plan: Cotesting done. Mammogram ordered. Counseled the patient about the recommended dietary allowance of 1000 mg of Calcium & 600 IU of vitamin D. The patient was instructed to perform monthly self-breast exams and to schedule an annual exam in a year; All questions answered and the patient verbalized understanding. Instructed the patient to schedule annual exam in a year (2) Screen for STD (sexually transmitted disease): Code(s): Z11.3 - Encounter for screening for infections with a predominantly sexual mode of transmission Plan: STD screening tests done includes: BV panel for trichomonas, GC/CT will send patient for serology std screening for HIV, RPR, Hep b s Ag, HepC Ab. Instructions given the patient to schedule a follow-up appointment for repeat serology screen in 6 months for possible false negatives. Orders: Orders Hepatitis B Surface Antigen Today Z20.2 - Contact with and (suspected) exposure to infections with a predominantly sexual mode of transmission Hepatitis C Antibody Today Z20.2 - Contact with and (suspected) exposure to infections with a predominantly sexual mode of transmission Bacterial Vaginosis Panel Today Z20.2 - Contact with and (suspected) exposure to infections with a predominantly sexual mode of transmission Syphilis Screen Today Z20.2 - Contact with and (suspected) exposure to infections with a predominantly sexual mode of transmission MM screening mammo BI Today Z12.31 - Encounter for screening mammogram for malignant neoplasm of breast Coding Level of Care Code New Pt Prev Care 40-64y([id number]) Diagnoses Well woman exam Z01.419 Screen for STD (sexually transmitted disease) Z11.3
[2023-05-10 13:29] VITALS: BP 118/70; BMI 33.2
== END 2023-05-10 16:22 | disposition home or self-care (01) ==
PROVIDERS: PCP Internal Medicine; Visit Provider Obstetrics & Gynecology
DX: Z01.419 Encounter for gynecological examination (general) (routine) without abnormal findings (principal); Z11.3 Encounter for screening for infections with a predominantly sexual mode of transmission
CPT/HCPCS: 99386

== ENCOUNTER 2023-05-10 13:57 | Outpatient (REF) | payer OTHER, SELFPAY ==
[2023-05-11 05:22] LABS: CT PCR NOT DETECTED (Not Detect.); NG PCR NOT DETECTED (Not Detect.)
[2023-05-11 08:38] LABS: Syphilis Screen Nonreactive (Nonreactive)
[2023-05-11 09:05] LABS: HBsAGNum1 0.62 S/CO (0.00-0.99); Hepatitis B Surface Antigen Negative (Negative); ~HepC Num1 0.09 S/CO (0.00-0.79); ~Hepatitis C Antibody Nonreactive (Nonreactive)
[2023-05-11 12:21] LABS: BV Int Neg Control Negative (Negative); BV Int Pos Control Positive (Positive)
== END 2023-05-10 13:58 | disposition home or self-care (01) ==
LOC: HO.LAB 13:57
PROVIDERS: PCP Internal Medicine; Visit Provider Obstetrics & Gynecology
DX: Z01.419 Encounter for gynecological examination (general) (routine) without abnormal findings (principal); Z11.3 Encounter for screening for infections with a predominantly sexual mode of transmission; Z20.2 Contact with and (suspected) exposure to infections with a predominantly sexual mode of transmission; Z11.59 Encounter for screening for other viral diseases
CPT/HCPCS: 0353U; 86780; 86803; 87340; 87480; 87510; 87660

== ENCOUNTER 2023-06-15 07:17 | Outpatient (REF) | payer OTHER, SELFPAY ==
[2023-06-15 08:37] LABS: Creatinine Urine 296.07 mg/dL; Microalbum/Creatinine Ratio Ur 38.1 ug/mg cr (<30)
[2023-06-15 08:41] LABS: Alanine Aminotransferase 18 U/L (0-31); Alkaline Phosphatase 86 U/L (39-117); Anion Gap 14 (12-20); Aspartate Amino Transferase 14 U/L (5-31); Bilirubin Total 0.4 mg/dL (0.0-1.0); Blood Urea Nitrogen 14 mg/dL (9-16); Carbon Dioxide 23 mmol/L (22-29); Chloride 103 mmol/L (96-108); Cholesterol 223 mg/dL (<200); Estimated Glomerular Filt Rate > 60; Glucose Fasting 184 mg/dL (60-99); HDL Cholesterol 66 mg/dL (>40); LDL Cholesterol Calculated 135 mg/dL (<100); Potassium 3.9 mmol/L (3.3-5.1); Sodium 136 mmol/L (135-145); Total Protein 7.1 g/dL (6.5-8.0); Triglycerides 113 mg/dL (<150)
[2023-06-15 08:56] LABS: Vitamin D 25-OH Total 33.8 ng/mL (>30)
[2023-06-15 16:20] LABS: Influenza A PCR NEGATIVE (Negative); Influenza B PCR NEGATIVE (Negative); Resp Syncy Virus RNA Qual PCR NEGATIVE (Negative); SARS COV2 PCR INHOUSE NEGATIVE (Negative)
== END 2023-06-15 07:18 | disposition home or self-care (01) ==
LOC: HO.LAB 07:17
PROVIDERS: PCP Internal Medicine; Visit Provider Internal Medicine
DX: E11.9 Type 2 diabetes mellitus without complications (principal); E55.9 Vitamin D deficiency, unspecified; E78.5 Hyperlipidemia, unspecified; E78.00 Pure hypercholesterolemia, unspecified; R09.89 Other specified symptoms and signs involving the circulatory and respiratory systems; Z11.52 Encounter for screening for COVID-19; Z20.828 Contact with and (suspected) exposure to other viral communicable diseases
CPT/HCPCS: 0241U; 36415; 80053; 80061; 82043; 82306; 82570

== ENCOUNTER 2023-06-15 14:42 | Outpatient (AMB) | payer OTHER, SELFPAY ==
--- NOTE | 2023-06-15 14:58 | A.OFFPC_ITS ---
Vital Signs 06/15/23 15:02 Height 5 ft 3 in Weight 185 lb BMI 32.8 BP 122/80 Blood Pressure Location Lt brachial Position Sitting Intake Visit Reasons: DM follow up Intake Note: Patient here for a follow up DM Communications Marketing Intern Required: No Accompanied by: Self / Same As Patient Allergies No Known Allergies Allergy (Verified 06/15/23 15:10) Medication List - Last Reconciled 06/15/23 by Ana Winter MD albuterol sulfate 90 mcg/actuation 1 inh inhalation QID PRN atorvastatin 20 mg PO BEDTIME 90 days blood sugar diagnostic (FreeStyle Test strips) Use 1 test strip twice a day blood-glucose meter (FreeStyle Lite Meter kit) As directed cyclobenzaprine 10 mg PO BEDTIME 30 days fluticasone propionate 50 mcg/actuation 1 spray intranasal DAILY 30 days ibuprofen 800 mg PO Q8H PRN 30 days lancets (FreeStyle Lancets) Use 1 lancet once a day lisinopril 5 mg PO DAILY 90 days loratadine 10 mg PO DAILY 90 days metformin 1,000 mg PO BID 90 days omeprazole 20 mg PO DAILY 90 days polymyxin B sulf-trimethoprim 10,000 unit- 1 mg/mL 1 drp ophthalmic (eye) Q4H 7 days semaglutide (Ozempic) 0.25 mg (0.368 mL) subcut QWEEK 30 days sennosides (Senna Laxative) 17.2 mg (2 x 8.6 mg) PO BEDTIME PRN 30 days terconazole 0.8% 1 appful vaginal BEDTIME 3 days zolpidem 5 mg PO BEDTIME PRN 30 days Tobacco use date assessed: 06/15/23 Dental Screening Dental Screen Date: 06/15/23 Did you have a dental visit in the last 12 months?: Yes Did you have a dental problem in the last 6 months where you did not have access to dental care?: No Was dental information given to patient?: Patient has dentist HPI HPI Comments History of Present Illness Details This is a 38-year-old female with diabetes mellitus type 2, hypertension, pure hypercholesterolemia and GERD that comes today for follow-up on her conditions. A1c is elevated and I increase Ozempic. Blood pressure st able. LDL not on goal and I will refill atorvastatin because she was not taking it. GERD stable with PPIs. No chest pain or shortness of breath. [facility] Medical History Separation of acromioclavicular joint due to injury Class 1 drug-induced obesity with body mass index (BMI) of 34.0 to 34.9 in adult Seasonal allergic rhinitis due to pollen Primary insomnia Constipation by delayed colonic transit Pure hypercholesterolemia GERD (gastroesophageal reflux disease) Essential hypertension Diabetes mellitus Lower abdominal pain Kidney stone Diabetes Diabetes Surgical History Tubal ligation status Status post panniculectomy History of appendectomy History of dilatation and curettage Family History Father No problems noted. Mother Diabetes mellitus Essential hypertension Stroke Hypothyroidism Coronary artery disease Mental health disorder Social History Housing: Apartment Alcohol intake: current Alcohol intake frequency: holidays/special occasions only Alcohol type: wine Patient Tobacco Use Status: Former Tobacco user Tobacco use type: Cigarette e-Cigarette/Vaping Use: Never Used Second Hand Smoke Exposure: No service: No Current occupational status: employed Current occupational exposures/hazards: No Cognitive needs: No Hearing needs: No Vision needs: No Questionnaire PHQ-9 Over the last 2 weeks, how often have you been bothered by any of the following problems? 1. Little interest or pleasure in doing things: not at all 2. Feeling down, depressed, or hopeless: not at all 3. Trouble falling or staying asleep, or sleeping too much: not at all 4. Feeling tired or having little energy: not at all 5. Poor appetite or overeating: not at all 6. Feeling bad about yourself - or that you are a failure or have let yourself or your family down: not at all 7. Trouble concentrating on things, such as reading the newspaper or watching television: not at all 8. Moving or speaking so slowly that other people could have noticed. Or the opposite - being so fidgety or restless that you have been moving around a lot more than usual: not at all 9. Thoughts that you would be better off or of hurting yourself in some way: not at all Total score: 0 Depression Screening Interpretation: Negative Depression Screening Done: Yes 80205 - PHQ-9 Billing: Yes Source: Developed by Drs. Luiz Karimi, Maine Caputo, Dieudonne Smith and colleagues, with an educational sreekanth from [employer]. Thrive Questionnaire Date Thrive assessed: 06/15/23 I am a: Patient What is your living situation today?: I have a steady place to live Within the past 12 months, did the food you bought not last and you didn't have the money to get more?: Never true Within the past 12 months, did you worry whether your food would run out before you got money to buy more?: Never true Do you have trouble paying for medicines?: No Do you have trouble getting transportation to medical appointments?: No Do you have trouble paying your heating and electricity bill?: No Do you have trouble taking care of your child, family member or friend?: No Do you have trouble with day-to-day activities such as bathing, preparing meals, shopping, managing finances, etc.?: No Are you currently unemployed and looking for a job?: No Are you interested in more education?: No Please select the resources that you would like help with: None AUDIT C Alcohol Use Questionnaire (AUDIT-C) 1. How often do you have a drink containing alcohol?: Monthly or less 2. How many drinks containing alcohol do you have on a typical day when you are drinking?: 1 or 2 3. How often do you have six or more drinks on one occasion?: Never Total Score: 1 Score Reviewed/Action Taken: No TR-7 AMB Questionnaire TR-7 Date TR - 7 assessed: 06/15/23 Feeling nervous, anxious, or on edge: 1 = Several days Not being able to stop or control worryin = Not at all Worrying too much about different things: 0 = Not at all Trouble relaxin = Not at all Being so restless that it is hard to sit still: 0 = Not at all Becoming easily annoyed or irritable: 0 = Not at all Feeling afraid as if something awful might happen: 0 = Not at all Total TR-7 score (0-4 normal; 5-9 mild; 10-14 moderate; 15-21 severe): 1 Source: Developed by Drs. Luiz Karimi, Maine Caputo, Dieudonne Smith and colleagues, with an educational sreekanth from [employer]. TR-7 Assessment Billing TR-7 Assessment Tool: TR-7 Assessment 45918 Review of Systems Const All systems reviewed & are unremarkable except as noted in HPI and below Eyes Reports no additional complaints, Denies change in vision and Denies other visual disturbances Card Denies chest pain at rest, Denies chest pain with activity, Denies edema, Denies irregular heart rhythm, Denies claudication, Denies dyspnea, Denies dyspnea on exertion, Denies orthopnea, Denies paroxysmal nocturnal dyspnea and Denies slow heart rate Resp Denies cough, Denies dyspnea and Denies dyspnea on exertion GI Denies abdominal pain, Denies change in bowel habits, Denies excessive flatus, Denies nausea and Denies vomiting Denies urinary incontinence, Denies urinary hesitancy and Denies urinary urgency Musc Denies abnormal gait, Denies atrophy, Denies deformity and Denies limited range of motion Skin/Breast Denies bleeding lesions, Denies changing lesions and Denies rash Neuro Denies abnormal gait, Denies behavioral changes and Denies lack of coordination Psych Denies behavioral changes Physical exam (Primary Care) Vital Signs: Last Vital Signs BP 122/80 06/15/23 15:02 BMI result Body Mass Index 32.8 Tobacco/Smoking Status: Tobacco use Status Tobacco use date assessed 06/15/23 06/15/23 15:06 Patient Tobacco Use Status Former Tobacco user 06/15/23 14:59 Tobacco use type Cigarette 06/15/23 14:59 e-Cigarette/Vaping Use Never Used 06/15/23 14:59 PHQ-9: PHQ-9 Score PHQ-9: Total score 0 06/15/23 15:20 Depression Screening Interpretation: Negative Thrive Assessment: Date of Thrive Assessment Date Thrive assessed 06/15/23 06/15/23 15:06 Eyes General: appearance normal, both eyes and all related structures Eyelids: Yes eyelids normal Conjunctivae: conjunctivae normal Neck Neck: Yes normal visual inspection and Yes supple Resp Effort & Inspection: normal respiratory effort Auscultation: clear to auscultation bilaterally Cardio Jugular venous distension: no JVD Rate: regular rate Rhythm: regular rhythm Heart sounds: S1 normal heart sound present and S2 normal heart sound present Extrem General: Yes full ROM Office Procedures Flu Questionnaire Does the patient have a severe egg allergy?: No Results AMB Hemoglobin A1c AMB Hemoglobin A1c 7.6 % Last Edit by MONICA Martin on 06/15/23 15:2 0 Immunizations flu vacc [id number] 6mos up(PF) 60 mcg(15 mcgx4)/0.5 mL IM syringe Performing Provider: Ana Winter MD [facility] Documented (not given) by: MONICA Martin on 06/15/23 15:06 Reason Not Given: Patient Refused Results Reviewed Results Reviewed: Laboratory Last Values Hgb A1c (Clinic) 7.6 % (4.0-6.0) H 06/15/23 14:57 Assessment and Plan Assessment & Plan (1) Diabetes mellitus: Code(s): E11.9 - Type 2 diabetes mellitus without complications Qualifiers: Diabetes mellitus type: type 2 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 Increase Ozempic. A1c goal is equal or less than 7%. (2) Essential hypertension: Code(s): I10 - Essential (primary) hypertension Plan: Continue lisinopril. Blood pressure goal is equal or less than 130/80. (3) Pure hypercholesterolemia: Code(s): E78.00 - Pure hypercholesterolemia, unspecified Plan: Restart statins. LDL goal is less than 70. (4) GERD (gastroesophageal reflux disease): Code(s): K21.9 - Gastro-esophageal reflux disease without esophagitis Plan: Continue PPIs as needed. Orders: Orders SARS-CoV2/FLU/RSV Today R09.89 - Other specified symptoms and signs involving the circulatory and respiratory systems Lipid Panel 4 Months E78.5 - Hyperlipidemia, unspecified Microalbumin, Random (w Creat) 4 Months E11.9 - Type 2 diabetes mellitus without complications Comprehensive [place]. Panel Fast 4 Months E11.9 - Type 2 diabetes mellitus without complications AMB Hemoglobin A1c Today E11.9 - Type 2 diabetes mellitus without complications Influenza [id number] Immunization Today Z23 - Encounter for immunization Vitamin D 25-OH Total 4 Months E55.9 - Vitamin D deficiency, unspecified Medications: New semaglutide 0.5 mg (0.736 mL) subcut QWEEK 3.68 mL 6RF 30 days E11.9 - Type 2 diabetes mellitus without complications Refilled atorvastatin 20 mg PO BEDTIME 90 tabs 1RF 90 days Discontinued semaglutide (Ozempic) for 4 weeks Discontinued Reason: Patient Completed Course 0.25 mg (0.368 mL) subcut QWEEK 30 days 2 mL 0RF E11.65 - Type 2 diabetes mellitus with hyperglycemia Coding Level of Care Code Est Pt Level 4 (65596) Diagnoses Type 2 diabetes mellitus with hyperglycemia, without long-term current use of insulin E11.65 Diabetes mellitus type: type 2 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
[2023-06-15 15:02] VITALS: BP 122/80; BMI 32.8
== END 2023-06-15 15:21 | disposition home or self-care (01) ==
PROVIDERS: PCP Internal Medicine; Visit Provider Internal Medicine
DX: E11.65 Type 2 diabetes mellitus with hyperglycemia (principal); E11.9 Type 2 diabetes mellitus without complications; I10 Essential (primary) hypertension; E78.00 Pure hypercholesterolemia, unspecified; K21.9 Gastro-esophageal reflux disease without esophagitis
CPT/HCPCS: 83036; 99214

== ENCOUNTER 2024-03-01 06:23 | Outpatient (REF) | payer OTHER, SELFPAY ==
[2024-03-01 08:11] LABS: Creatinine Urine 134.18 mg/dL; Microalbum/Creatinine Ratio Ur 7.4 ug/mg cr (<30)
[2024-03-01 08:19] LABS: Alanine Aminotransferase 38 U/L (0-31); Albumin Level 4.1 g/dL (3.5-5.0); Alkaline Phosphatase 93 U/L (39-117); Anion Gap 11 (12-20); Aspartate Amino Transferase 22 U/L (5-31); Bilirubin Total 0.5 mg/dL (0.0-1.0); Blood Urea Nitrogen 12 mg/dL (9-16); Calcium 9.3 mg/dL (8.4-10.2); Carbon Dioxide 26 mmol/L (22-29); Chloride 107 mmol/L (96-108); Cholesterol 139 mg/dL (<200); Estimated Glomerular Filt Rate > 60; Glucose Fasting 168 mg/dL (60-99); HDL Cholesterol 57 mg/dL (>40); LDL Cholesterol Calculated 66 mg/dL (<100); Potassium 4.4 mmol/L (3.3-5.1); Sodium 140 mmol/L (135-145); Total Protein 6.9 g/dL (6.5-8.0); Triglycerides 84 mg/dL (<150)
[2024-03-01 08:28] LABS: Vitamin D 25-OH Total 36.5 ng/mL (>30)
== END 2024-03-01 06:24 | disposition home or self-care (01) ==
LOC: HO.LAB 06:23
PROVIDERS: PCP Internal Medicine; Visit Provider Internal Medicine
DX: E55.9 Vitamin D deficiency, unspecified (principal); E11.65 Type 2 diabetes mellitus with hyperglycemia; E78.5 Hyperlipidemia, unspecified
CPT/HCPCS: 36415; 80053; 80061; 82043; 82306; 82570

== ENCOUNTER 2024-03-05 14:14 | Outpatient (REF) | payer OTHER, SELFPAY ==
[2024-03-05 15:15] LABS: MANUAL DIFF FLAG NO
[2024-03-05 15:26] LABS: Basophils Percent Auto 0.3 % (0-2); Eosinophils Absolute Auto 0.1 X10*3/uL (0.0-0.4); Hematocrit 39.3 % (37.0-47.0); Imm Gran Abs Auto 0.04 X10*3/uL (0.00-0.03); Imm Gran Pct Auto 0.4 % (0.0-0.4); Lymphocytes Absolute Auto 2.2 X10*3/uL (1.2-4.9); Lymphocytes Percent Auto 21.8 % (20-40); Mean Corpuscular HGB Conc 33.1 g/dl (31.0-35.0); Mean Corpuscular Hemoglobin 29.7 pg (27.0-33.0); Mean Corpuscular Volume 89.7 fL (80.0-98.0); Mean Platelet Volume 9.4 fL (9.4-12.3); Monocytes Absolute Auto 0.9 X10*3/uL (0.1-1.2); Monocytes Percent Auto 8.6 % (2-11); Neutrophils Absolute Auto 6.8 x10*3/uL (2.0-8.3); Neutrophils Percent Auto 67.9 % (45-73); Platelet Count 317 X10*3/uL (160-400); Red Blood Count 4.38 X10*6/uL (4.20-5.50); Red Cell Distribution Width 12.8 % (11.0-16.0); White Blood Count 9.9 X10*3/uL (4.8-10.8)
[2024-03-05 16:19] LABS: Thyroid Stimulating Hormone 2.32 uIU/mL (0.32-4.0)
[2024-03-05 16:30] LABS: Folate > 20.0 ng/mL (> or = 4.0); Vitamin B12 272 pg/mL (200-900)
== END 2024-03-05 14:15 | disposition home or self-care (01) ==
LOC: HO.LAB 14:14
PROVIDERS: PCP Internal Medicine; Visit Provider Internal Medicine
DX: R53.83 Other fatigue (principal); D64.9 Anemia, unspecified; E53.8 Deficiency of other specified B group vitamins; E11.65 Type 2 diabetes mellitus with hyperglycemia; E78.00 Pure hypercholesterolemia, unspecified; I10 Essential (primary) hypertension; R40.0 Somnolence; Z79.85 Long-term (current) use of injectable non-insulin antidiabetic drugs; Z79.84 Long term (current) use of oral hypoglycemic drugs; Z23 Encounter for immunization
CPT/HCPCS: 36415; 82607; 82746; 83036; 84443; 85025; 90471; 90656; 99212

== ENCOUNTER 2024-03-05 14:14 | Outpatient (AMB) | payer OTHER, SELFPAY ==
[2024-03-05 14:16] VITALS: BP 112/80; BMI 32.2
--- NOTE | 2024-03-05 14:16 | MHC.PC.OV ---
Vital Signs 03/05/24 14:16 Height 5 ft 3 in Weight 182 lb BMI 32.2 BP 112/80 Blood Pressure Location Lt brachial Position Sitting Intake Visit Reasons: 4 mnth, f/u meds Intake Note: Patient here for a 4 month follow up Batch Tester Required: No Accompanied by: Self / Same As Patient Allergies No Known Allergies Allergy (Verified 03/05/24 14:28) Medication List - Last Reconciled 03/05/24 by Ana Winter MD albuterol sulfate 90 mcg/actuation 1 inh inhalation QID PRN atorvastatin 20 mg PO BEDTIME 90 days blood sugar diagnostic (FreeStyle Test strips) Use 1 test strip twice a day blood-glucose meter (FreeStyle Lite Meter kit) As directed cyclobenzaprine 10 mg PO BEDTIME 30 days fluticasone propionate 50 mcg/actuation 1 spray intranasal DAILY 30 days ibuprofen 800 mg PO Q8H PRN 30 days lancets (FreeStyle Lancets) Use 1 lancet once a day lisinopril 5 mg PO DAILY 90 days loratadine 10 mg PO DAILY 90 days metformin 1,000 mg PO BID 90 days omeprazole 20 mg PO DAILY 90 days semaglutide (Ozempic) 1 mg (0.75 mL) subcut QWEEK 4 weeks sennosides (Senna Laxative) 17.2 mg (2 x 8.6 mg) PO BEDTIME PRN 30 days terconazole 0.8% 1 appful vaginal BEDTIME 3 days zolpidem 5 mg PO BEDTIME PRN 30 days Tobacco use date assessed: 06/15/23 Dental Screening Dental Screen Date: 03/05/24 Did you have a dental visit in the last 12 months?: Yes Did you have a dental problem in the last 6 months where you did not have access to dental care?: No Was dental information given to patient?: Patient has dentist HPI HPI Comments History of Present Illness Details This is a 39-year-old female with diabetes mellitus type 2, hypertension and pure hypercholesterolemia that complains of severely dozing off while watching TV, sitting and reading, lying down in the afternoon after lunch when circumstances permit and as a passenger in a car with an [place] score Scale of 12 and this is why I will order a sleep study. A1c has improved. She just started Ozempic. Blood pressure stable. LDL within goal. She is obese with a BMI of 32.2 and was advised to do diet and exercise to reach BMI goal less than 30. Diabetic eye exam was 2023. [facility] Medical History (Updated 03/05/24 @ 14:38 by Ana Winter MD) Separation of acromioclavicular joint due to injury Class 1 drug-induced obesity with body mass index (BMI) of 34.0 to 34.9 in adult Seasonal allergic rhinitis due to pollen Primary insomnia Constipation by delayed colonic transit Pure hypercholesterolemia GERD (gastroesophageal reflux disease) Essential hypertension Diabetes mellitus Lower abdominal pain Kidney stone Diabetes Diabetes Surgical History Tubal ligation status Status post panniculectomy History of appendectomy History of dilatation and curettage Family History Father No problems noted. Mother Diabetes mellitus Essential hypertension Stroke Hypothyroidism Coronary artery disease Mental health disorder Social History Housing: Apartment Alcohol intake: current Alcohol intake frequency: holidays/special occasions only Alcohol type: wine Patient Tobacco Use Status: Former Tobacco user Tobacco use type: Cigarette e-Cigarette/Vaping Use: Never Used Second Hand Smoke Exposure: No service: No Current occupational status: employed Current occupational exposures/hazards: No Cognitive needs: No Hearing needs: No Vision needs: No Questionnaire Thrive Questionnaire Date Thrive assessed: 06/15/23 Are you currently unemployed and looking for a job?: No AUDIT C Alcohol Use Questionnaire (AUDIT-C) 1. How often do you have a drink containing alcohol?: Monthly or less 2. How many drinks containing alcohol do you have on a typical day when you are drinking?: 1 or 2 3. How often do you have six or more drinks on one occasion?: Never Total Score: 1 Score Reviewed/Action Taken: No TR-7 AMB Questionnaire TR-7 Date TR - 7 assessed: 06/15/23 Source: Developed by Drs. Luiz Karimi, Maine Caputo, Dieudonne Smith and colleagues, with an educational sreekanth from [employer]. Review of Systems Const All systems reviewed & are unremarkable except as noted in HPI and below Card Denies chest pain at rest, Denies chest pain with activity, Denies edema, Denies irregular heart rhythm, Denies claudication, Denies dyspnea, Denies dyspnea on exertion, Denies orthopnea, Denies paroxysmal nocturnal dyspnea and Denies slow heart rate Resp Denies cough, Denies dyspnea and Denies dyspnea on exertion GI Denies abdominal pain, Denies change in bowel habits, Denies excessive flatus, Denies nausea and Denies vomiting Physical exam (Primary Care) Vital Signs: Last Vital Signs BP 112/80 03/05/24 14:16 BMI result Body Mass Index 32.2 Tobacco/Smoking Status: Tobacco use Status Tobacco use date assessed 06/15/23 03/05/24 14:23 Patient Tobacco Use Status Former Tobacco user 03/05/24 14:23 Tobacco use type Cigarette 03/05/24 14:23 e-Cigarette/Vaping Use Never Used 03/05/24 14:23 Thrive Assessment: Date of Thrive Assessment Date Thrive assessed 06/15/23 03/05/24 14:23 Resp Effort & Inspection: normal respiratory effort Auscultation: clear to auscultation bilaterally Cardio Jugular venous distension: no JVD Rate: regular rate Rhythm: regular rhythm Heart sounds: S1 normal heart sound present and S2 normal heart sound present Neuro General: no focal motor deficits Extrem General: Yes full ROM Office Procedures Flu Questionnaire Does the patient have a severe egg allergy?: No Does the patient have severe life threatening allergies?: No Does the patient have a fever or illness today?: No Has the patient ever had Guillain-Vidal Syndrome?: No Has the patient ever had any past reaction to a flu shot?: No Results AMB Hemoglobin A1c AMB Hemoglobin A1c 7.2 % Last Edit by MONICA Martin on 03/05/24 14:34 Immunizations Fluarix Triv [id number] (PF) 45 mcg (15 mcg x 3)/0.5 mL IM syringe Performing Provider: Ana Winter MD Performing Location[facility] [place] [facility] Administered by: MONICA Martin on 03/05/24 14:42 Dose Route Admin Location Dispensed Lot Number Expiration Date [facility] Clinical Mental Health Counselor 0.5 mL IM Left Deltoid 0.5 mL [id number] 11/26/24 [id number] [employer] VIS Given Date VIS Provided VIS Publication Date 03/05/24 Single Vaccine 21 Eligibility Eligibility Date Funding Source Not [facility] Eligible 03/05/24 Private Results Reviewed Results Reviewed: Laboratory Last Values Hgb A1c (Clinic) 7.2 % (4.0-6.0) H 03/05/24 14:15 Coding Level of Care Code Est Pt Level 4 (11030) Complex EM visit Add On G2211 Diagnoses Daytime somnolence R40.0 Type 2 diabetes mellitus with hyperglycemia, without long-term current use of insulin E11.65 Diabetes mellitus type: type 2 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 (2) Diabetes mellitus: Code(s): E11.9 - Type 2 diabetes mellitus without complications Category: Medical Qualifiers: Diabetes mellitus type: type 2 Diabetes mellitus assisted insulin use: without adjunct faculty for medical terminology use Diabetes mellitus complication status: with hyperglycemia Qualified Code(s): E11.65 - Type 2 diabetes mellitus with hyperglycemia Plan: Continue metformin and Ozempic. A1c goal is equal or less than 7%. Do diabetic eye exam yearly. (3) Essential hypertension: Code(s): I10 - Essential (primary) hypertension Category: Medical Plan: Continue lisinopril. Blood pressure goal is equal or less than 130/80. (4) Pure hypercholesterolemia: Code(s): E78.00 - Pure hypercholesterolemia, unspecified Category: Medical Plan: Continue statins. LDL goal is less than 70. Orders: Orders AMB Hemoglobin A1c Today E11.65 - Type 2 diabetes mellitus with hyperglycemia Thyroid Stimulating Hormone Today R53.83 - Other fatigue RT home sleep study Today R40.0 - Somnolence Influenza [id number] Immunization Today Z23 - Encounter for immunization Complete Blood Count Auto Diff Today D64.9 - Anemia, unspecified Vitamin B12 and Folate Today E53.8 - Deficiency of other specified B group vitamins Medications: Refilled sennosides (Senna Laxative) 17.2 mg (2 x 8.6 mg) PO BEDTIME PRN 60 tabs 1RF constipation 30 days
== END 2024-03-05 14:50 | disposition home or self-care (01) ==
PROVIDERS: PCP Internal Medicine; Visit Provider Internal Medicine
DX: E11.65 Type 2 diabetes mellitus with hyperglycemia (principal); I10 Essential (primary) hypertension; E78.00 Pure hypercholesterolemia, unspecified; Z23 Encounter for immunization

== ENCOUNTER 2024-03-19 14:09 | Outpatient (AMB) | payer OTHER, SELFPAY ==
--- NOTE | 2024-03-19 14:10 | A.OFFPC_ITS ---
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: No Accompanied by: Self / Same As Patient Allergies No Known Allergies Allergy (Verified 03/19/24 14:15) Medication List - Last Reconciled 03/19/24 by Ana Winter MD albuterol sulfate 90 mcg/actuation 1 inh inhalation QID PRN atorvastatin 20 mg PO BEDTIME 90 days azithromycin 250 mg PO DAILY 5 days blood sugar diagnostic (FreeStyle Test strips) Use 1 test strip twice a day blood-glucose meter (FreeStyle Lite Meter kit) As directed cyclobenzaprine 10 mg PO BEDTIME 30 days fluticasone propionate 50 mcg/actuation 1 spray intranasal DAILY 30 days ibuprofen 800 mg PO Q8H PRN 30 days lancets (FreeStyle Lancets) Use 1 lancet once a day lisinopril 5 mg PO DAILY 90 days loratadine 10 mg PO DAILY 90 days metformin 1,000 mg PO BID 90 days omeprazole 20 mg PO DAILY 90 days semaglutide (Ozempic) 1 mg (0.75 mL) subcut QWEEK 4 weeks sennosides (Senna Laxative) 17.2 mg (2 x 8.6 mg) PO BEDTIME PRN 30 days terconazole 0.8% 1 appful vaginal BEDTIME 3 days zolpidem 5 mg PO BEDTIME PRN 30 days Tobacco use date assessed: 06/15/23 Dental Screening Dental Screen Date: 03/05/24 HPI HPI Comments History of Present Illness Details This is a 39-year-old female with diabetes mellitus type 2 that tele health visit by phone complaining of a that started yesterday. She said her son was sick and tested positive for whooping cough a week ago. Antibiotics will be started today for her. No fever. Some sore throat. Her A1c was close to goal the last time. 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 Mother Diabetes mellitus Essential hypertension Stroke Hypothyroidism Coronary artery disease Mental health disorder Social History Housing: Apartment Alcohol intake: current Alcohol intake frequency: holidays/special occasions only Alcohol type: wine Patient Tobacco Use Status: Former Tobacco user Tobacco use type: Cigarette e-Cigarette/Vaping Use: Never Used Second Hand Smoke Exposure: No service: No Current occupational status: employed Current occupational exposures/hazards: No Cognitive needs: No Hearing needs: No Vision needs: No Questionnaire Thrive Questionnaire Date Thrive assessed: 06/15/23 Are you currently unemployed and looking for a job?: No TR-7 AMB Questionnaire TR-7 Date TR - 7 assessed: 06/15/23 Source: Developed by Drs. Luiz Karimi, Maine Caputo, Dieudonne Smith and colleagues, with an educational sreekanth from [employer]. Review of Systems Const All systems reviewed & are unremarkable except as noted in HPI and below Card Denies chest pain at rest, Denies chest pain with activity, Denies edema, Denies irregular heart rhythm, Denies claudication, Denies orthopnea, Denies paroxysmal nocturnal dyspnea and Denies slow heart rate Resp Reports cough Neuro Denies lack of coordination Physical exam (Primary Care) Tobacco/Smoking Status: Tobacco use Status Tobacco use date assessed 06/15/23 03/19/24 14:12 Patient Tobacco Use Status Former Tobacco user 03/19/24 14:12 Tobacco use type Cigarette 03/19/24 14:12 e-Cigarette/Vaping Use Never Used 03/19/24 14:12 Thrive Assessment: Date of Thrive Assessment Date Thrive assessed 06/15/23 03/19/24 14:12 Telehealth Telehealth Telehealth Platform: Telephone Location of provider rendering services: practice address Location of patient: address on file Patient Identification confirmed using: Name, : Yes Telehealth method: voice only Patient verbally consented to treatment: Yes Patient verbally consented to billing insurance company: Yes Patient informed of any privacy concerns related to visit: Yes Minutes spent on Phone/Video with Pt.: 15 Coding Level of Care Code Tele Est Pt Level 3 (84502) Diagnoses Type 2 diabetes mellitus with hyperglycemia, without long-term current use of insulin E11.65 Diabetes mellitus type: type 2 Diabetes mellitus terminal system operator insulin use: without nursing home use Diabetes mellitus complication status: with hyperglycemia Whooping cough A37.90 Time Spent (min) 15 Assessment & Plan Assessment & Plan (1) Diabetes mellitus: Code(s): E11.9 - Type 2 diabetes mellitus without complications Category: Medical Qualifiers: Diabetes mellitus type: type 2 Diabetes mellitus nursing home insulin use: without nursing home use Diabetes mellitus complication status: with hyperglycemia Qualified Code(s): E11.65 - Type 2 diabetes mellitus with hyperglycemia Plan: Continue metformin and Ozempic. A1c goal is equal or less than 7%. (2) Whooping cough: Code(s): A37.90 - Whooping cough, unspecified species without pneumonia Category: Medical Plan: Start Z-Micah
== END 2024-03-19 17:51 | disposition home or self-care (01) ==
LOC: HO.HMCH 14:09
PROVIDERS: PCP Internal Medicine; Visit Provider Internal Medicine
DX: E11.65 Type 2 diabetes mellitus with hyperglycemia (principal); A37.90 Whooping cough, unspecified species without pneumonia

== ENCOUNTER → 2024-03-19 14:09 | Outpatient (BNVA) | payer OTHER, SELFPAY | PROVIDERS: PCP Internal Medicine; Visit Provider Internal Medicine ==

== ENCOUNTER → 2024-04-16 14:58 | Outpatient (REF) | payer OTHER, SELFPAY | LOC: HO.SL 14:58 | PROVIDERS: PCP Internal Medicine; Visit Provider Internal Medicine | DX: R40.0 Somnolence (principal) | CPT/HCPCS: 95806 ==

== ENCOUNTER 2024-06-26 15:07 | Outpatient (REF) | payer OTHER, SELFPAY | END 2024-06-26 15:08 | disposition home or self-care (01) | LOC: HO.LAB 15:07 | PROVIDERS: PCP Internal Medicine; Visit Provider Obstetrics & Gynecology | DX: Z01.419 Encounter for gynecological examination (general) (routine) without abnormal findings (principal); N90.7 Vulvar cyst | CPT/HCPCS: 56405; 87070; 87205; 99396; 99459 ==

== ENCOUNTER 2024-07-13 15:01 | Outpatient (REF) | payer OTHER, SELFPAY | END 2024-07-13 15:02 | disposition home or self-care (01) | LOC: HO.MAMMO 15:01 | PROVIDERS: PCP Internal Medicine; Visit Provider Obstetrics & Gynecology | DX: Z12.31 Encounter for screening mammogram for malignant neoplasm of breast (principal) | CPT/HCPCS: 77063; 77067 ==

== ENCOUNTER → 2024-07-13 15:15 | Outpatient (BNV) | payer OTHER, SELFPAY | PROVIDERS: PCP Internal Medicine; Visit Provider Internal Medicine | DX: Z12.31 Encounter for screening mammogram for malignant neoplasm of breast (principal) | CPT/HCPCS: 77063; 77067 ==

== ENCOUNTER 2024-07-26 15:07 | Outpatient (AMB) | payer OTHER, SELFPAY ==
[2024-07-26 15:18] VITALS: BP 110/78; PULSE 89; O2SAT 98; BMI 31.4
--- NOTE | 2024-07-26 15:18 | A.OFFPC_ITS ---
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[employer] Name: Ana Winter MD Information Interpreted: non-clinical & clinical Accompanied by: Self / Same As Patient Allergies No Known Allergies Allergy (Verified 07/26/24 15:33) Medication List - Last Reconciled 07/26/24 by Ana Winter MD albuterol sulfate 90 mcg/actuation 1 inh inhalation QID PRN atorvastatin 20 mg PO BEDTIME 90 days azithromycin 250 mg PO DAILY 5 days blood sugar diagnostic (FreeStyle Test strips) Use 1 test strip twice a day blood-glucose meter (FreeStyle Lite Meter kit) As directed cyclobenzaprine 10 mg PO BEDTIME 30 days fluticasone propionate 50 mcg/actuation 1 spray intranasal DAILY 30 days ibuprofen 800 mg PO Q8H PRN 30 days lancets (FreeStyle Lancets) Use 1 lancet once a day lisinopril 5 mg PO DAILY 90 days loratadine 10 mg PO DAILY 90 days metformin 1,000 mg PO BID 90 days omeprazole 20 mg PO DAILY 90 days semaglutide (Ozempic) 1 mg (0.75 mL) subcut QWEEK 4 weeks sennosides (Senna Laxative) 17.2 mg (2 x 8.6 mg) PO BEDTIME PRN 30 days terconazole 0.8% 1 appful vaginal BEDTIME 3 days zolpidem 5 mg PO BEDTIME PRN 30 days Tobacco use date assessed: 07/26/24 Dental Screening Dental Screen Date: 07/26/24 Did you have a dental visit in the last 12 months?: Yes Did you have a dental problem in the last 6 months where you did not have access to dental care?: No Was dental information given to patient?: Patient has dentist HPI HPI Comments History of Present Illness Details The patient is a 39-year-old female presenting for an annual physical examination. Complaints of acute right foot pain. She has a history of essential hypertension and type 2 diabetes mellitus, managed with Lisinopril and Metformin respectively. Recent A1c is reported at 7.4%. She describes a longstanding issue with gastroesophageal reflux disease treated with Omeprazole, and constipation managed with Senna. Additionally, the patient uses medications for insomnia and occasional allergy relief. Acute pain in the right foot emerged, worsening on bearing weight, described as constant with a perception of a bone spur presence. This pain has disrupted the ability to function optimally. Recent fatigue and a possible link with menstrual abnormalities were noted, compounding with the already present symptomatology. Past surgeries include tubal ligation, appendectomy, panicolectomy, and D&C. Familial history is significant with noted medical and psychiatric conditions affecting the mother and early paternal . - Mammography conducted this month, resu lts negative. - Papanicolaou test conducted in 2022, n egative; next scheduled in five years. - Annual gynecological examinations perf ormed. - Eye examination conducted this year, r eported as normal. - Adjustments in medications, as require d, based on symptomatology and diagnostic outcomes. 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 Mother Diabetes mellitus Essential hypertension Stroke Hypothyroidism Coronary artery disease Mental health disorder Social History Housing: Apartment Alcohol intake: current Alcohol intake frequency: holidays/special occasions only Alcohol type: wine Patient Tobacco Use Status: Former Tobacco user Tobacco use type: Cigarette e-Cigarette/Vaping Use: Never Used Second Hand Smoke Exposure: No service: No Current occupational status: employed Current occupational exposures/hazards: No Cognitive needs: No Hearing needs: No Vision needs: No Questionnaire PHQ-9 Over the last 2 weeks, how often have you been bothered by any of the following problems? 1. Little interest or pleasure in doing things: not at all 2. Feeling down, depressed, or hopeless: not at all 3. Trouble falling or staying asleep, or sleeping too much: not at all 4. Feeling tired or having little energy: several days 5. Poor appetite or overeating: not at all 6. Feeling bad about yourself - or that you are a failure or have let yourself or your family down: not at all 7. Trouble concentrating on things, such as reading the newspaper or watching television: not at all 8. Moving or speaking so slowly that other people could have noticed. Or the opposite - being so fidgety or restless that you have been moving around a lot more than usual: not at all 9. Thoughts that you would be better off or of hurting yourself in some way: not at all Total score: 1 Depression Screening Interpretation: Negative Depression Screening Done: Yes 24698 - PHQ-9 Billing: Yes Source: Developed by Drs. Luiz Karimi, Maine Caputo, Dieudonne Smith and colleagues, with an educational sreekanth from [employer]. Thrive Questionnaire Date Thrive assessed: 07/26/24 I am a: Patient What is your living situation today?: I have a steady place to live Within the past 12 months, did the food you bought not last and you didn't have the money to get more?: Never true Within the past 12 months, did you worry whether your food would run out before you got money to buy more?: Never true Do you have trouble paying for medicines?: I choose not to answer this question Do you have trouble getting transportation to medical appointments?: No Do you have trouble paying your heating and electricity bill?: I choose not to answer this question Do you have trouble taking care of your child, family member or friend?: No Do you have trouble with day-to-day activities such as bathing, preparing meals, shopping, managing finances, etc.?: No Are you currently unemployed and looking for a job?: No Are you interested in more education?: No Please select the resources that you would like help with: None Currently or been in a relationship where the following occur: No concerns reported THRIVE Score: 0 AUDIT C Alcohol Use Questionnaire (AUDIT-C) 1. How often do you have a drink containing alcohol?: Monthly or less 2. How many drinks containing alcohol do you have on a typical day when you are drinking?: 1 or 2 3. How often do you have six or more drinks on one occasion?: Never Total Score: 1 Score Reviewed/Action Taken: No TR-7 AMB Questionnaire TR-7 Date TR - 7 assessed: 07/26/24 Feeling nervous, anxious, or on edge: 0 = Not at all Not being able to stop or control worryin = Not at all Worrying too much about different things: 0 = Not at all Trouble relaxin = Not at all Being so restless that it is hard to sit still: 0 = Not at all Becoming easily annoyed or irritable: 0 = Not at all Feeling afraid as if something awful might happen: 0 = Not at all Total TR-7 score (0-4 normal; 5-9 mild; 10-14 moderate; 15-21 severe): 0 Source: Developed by Drs. Luiz Karimi, Maine Caputo, Dieudonne hernandez nd colleagues, with an educational sreekanth from [employer]. TR-7 Assessment Billing TR-7 Assessment Tool: TR-7 Assessment 03605 Review of Systems Const All systems reviewed & are unremarkable except as noted in HPI and below Reports fatigue Card Denies chest pain at rest, Denies chest pain with activity, Denies edema, Denies irregular heart rhythm, Denies claudication, Denies dyspnea, Denies dyspnea on exertion, Denies orthopnea, Denies paroxysmal nocturnal dyspnea and Denies slow heart rate Resp Denies cough, Denies dyspnea and Denies dyspnea on exertion GI Denies abdominal pain, Denies change in bowel habits, Denies excessive flatus, Denies nausea and Denies vomiting Musc Denies abnormal gait and Reports arthralgias Neuro Denies abnormal gait, Denies behavioral changes and Denies lack of coordination Psych Denies behavioral changes Endo Reports fatigue Physical exam (Primary Care) Vital Signs: Last Vital Signs Pulse 89 07/26/24 15:18 BP 110/78 07/26/24 15:18 Pulse Ox 98 07/26/24 15:18 Oxygen Delivery Method Room Air 07/26/24 15:18 BMI result Body Mass Index 31.4 BMI Assessment/Plan discussion: High BMI High, discussed plan: lifestyle, weight reduction, dietary and physical activity Tobacco/Smoking Status: Tobacco use Status Tobacco use date assessed 07/26/24 07/26/24 15:23 Patient Tobacco Use Status Former Tobacco user 07/26/24 15:23 Tobacco use type Cigarette 07/26/24 15:23 e-Cigarette/Vaping Use Never Used 07/26/24 15:23 PHQ-9: PHQ-9 Score PHQ-9: Total score 1 07/26/24 15:50 Depression Screening Interpretation: Negative Thrive Assessment: Date of Thrive Assessment Date Thrive assessed 07/26/24 07/26/24 15:23 Currently or been in a relationship where the following occur: No concerns reported HENMT Head: Yes normal to inspection, Yes normocephalic and Yes atraumatic Ears: external ears normal Eyes General: appearance normal, both eyes and all related structures Eyelids: Yes eyelids normal Conjunctivae: conjunctivae normal Neck Neck: Yes normal visual inspection and Yes supple Resp Effort & Inspection: normal respiratory effort Auscultation: clear to auscultation bilaterally Cardio Jugular venous distension: no JVD Rate: regular rate Rhythm: regular rhythm Heart sounds: S1 normal heart sound present and S2 normal heart sound present GI Inspection: Yes normal to inspection Palpation (GI): Soft to palpation and nontender Auscultation: normal bowel sounds Skin General skin exam: no rashes or lesions noted Neuro General: no focal motor deficits Extrem General: Yes full ROM Psych Appearance: grossly normal Results AMB Hemoglobin A1c AMB Hemoglobin A1c 7.4 % Last Edit by DEEPA Phillip on 07/26/24 15:49 Results Reviewed Results Reviewed: Laboratory Last Values Hgb A1c (Clinic) 7.4 % (4.0-6.0) H 07/26/24 15:34 Coding Level of Care Code Est Pt Level 3 (55327) Est Pt Prev Care 40-64y(14263) Diagnoses Physical exam Z00.00 Fatigue R53.83 Right foot pain M79.671 Type 2 diabetes mellitus with hyperglycemia, without long-term current use of insulin E11.65 Diabetes mellitus type: type 2 Diabetes mellitus superintendent terminal insulin use: without residential use Diabetes mellitus complication status: with hyperglycemia Additional Codes TR-7 Assessment Billing - TR-7 Assessment Tool: TR-7 Assessment 73370 ([id number]) PHQ-9 - 39706 - PHQ-9 Billing: Yes ([id number]) Time Spent (min) 31 Assessment & Plan Assessment & Plan (1) Physical exam: Code(s): Z00.00 - Encounter for general adult medical examination without abnormal findings Category: Medical (2) Fatigue: Code(s): R53.83 - Other fatigue Category: Medical (3) Right foot pain: Code(s): M79.671 - Pain in right foot Category: Medical (4) Diabetes mellitus: Code(s): E11.9 - Type 2 diabetes mellitus without complications Category: Medical Qualifiers: Diabetes mellitus type: type 2 Diabetes mellitus residential insulin use: without residential use Diabetes mellitus complication status: with hyperglycemia Qualified Code(s): E11.65 - Type 2 diabetes mellitus with hyperglycemia Plan I will continue managing the patient's chronic conditions, ensuring medication adherence and evaluating potential adjustments. We will proceed with imaging the right foot to understand the acute pain etiology, and I am considering possible musculoskeletal abnormalities. Diabetic control remains a priority, and adjustments like increasing Ozempic dosage will be considered to optimize management. I reiterated the importance of regular evaluations for her insomnia and gastroesophageal reflux disease. Patient was informed and verbally consented to the use of an ambient scribe for clinic note documentation during this visit. I discussed the patient's current health status, emphasizing chronic disease control and the necessity for consistent monitoring. We talked about the diagnostic imaging for her right foot pain and possible interventions upon finding the results. We reviewed the medication regimen, including Ozempic for diabetes management, and potential changes like increasing the dosage. Discussions detailed the benefits and possible side effects of each medication. Adherence to lifestyle and dietary recommendations were reinforced considering her chronic conditions and sedation history. Orders: Orders XR foot RT 2V Today M79.671 - Pain in right foot Complete Blood Count Auto Diff 4 Months R53.83 - Other fatigue AMB Hemoglobin A1c Today Z13.9 - Encounter for screening, unspecified Thyroid Stimulating Hormone 4 Months R53.83 - Other fatigue Microalbumin, Random (w Creat) 4 Months R80.9 - Proteinuria, unspecified Lipid Panel 4 Months E78.5 - Hyperlipidemia, unspecified Vitamin D 25-OH Total 4 Months E55.9 - Vitamin D deficiency, unspecified, R53.83 - Other fatigue IRON PROFILE 4 Months D64.9 - Anemia, unspecified, R53.83 - Other fatigue Vitamin B12 and Folate 4 Months E53.8 - Deficiency of other specified B group vitamins, R53.83 - Other fatigue Comprehensive [place]. Panel Fast 4 Months R53.83 - Other fatigue Medications: New semaglutide (Ozempic) 2 mg (0.75 mL) subcut QWEEK 3 mL 3RF 4 weeks E11.65 - Type 2 diabetes mellitus with hyperglycemia blood pressure test kit-large ([employer] Blood Pressure Monitor kit) As directed 1 ea 0RF I10 - Essential (primary) hypertension Discontinued semaglutide (Ozempic) Discontinued Reason: Patient Completed Course 1 mg (0.75 mL) subcut QWEEK 4 weeks 3 mL 0RF Patient Instructions: - Continue current medication regimen and dietary/lifestyle modifications. - Schedule and complete imaging for the right foot as soon as possible. - Monitor blood sugar levels and report significant deviations. - Follow up in four months for further evaluation and to discuss laboratory findings.
== END 2024-07-26 15:52 | disposition home or self-care (01) ==
PROVIDERS: PCP Internal Medicine; Visit Provider Internal Medicine
DX: Z00.00 Encounter for general adult medical examination without abnormal findings (principal); R53.83 Other fatigue; M79.671 Pain in right foot; E11.65 Type 2 diabetes mellitus with hyperglycemia

== ENCOUNTER → 2024-07-26 15:07 | Outpatient (BNVA) | payer OTHER, SELFPAY | PROVIDERS: PCP Internal Medicine; Visit Provider Internal Medicine | DX: Z00.00 Encounter for general adult medical examination without abnormal findings (principal); R53.83 Other fatigue; M79.671 Pain in right foot; E11.65 Type 2 diabetes mellitus with hyperglycemia | CPT/HCPCS: 83036; 96127; 99212; 99396 ==

== ENCOUNTER 2025-03-25 07:14 | Outpatient (REF) | payer OTHER, SELFPAY ==
[2025-03-25 07:28] LABS: MANUAL DIFF FLAG NO
[2025-03-25 07:46] LABS: Hematocrit 37.8 % (37.0-47.0); Hemoglobin 12.4 g/dl (12.0-16.0); Imm Gran Abs Auto 0.03 X10*3/uL (0.00-0.03); Imm Gran Pct Auto 0.3 % (0.0-0.4); Lymphocytes Absolute Auto 2.7 X10*3/uL (1.2-4.9); Mean Corpuscular HGB Conc 32.8 g/dl (31.0-35.0); Mean Corpuscular Hemoglobin 27.8 pg (27.0-33.0); Mean Corpuscular Volume 84.8 fL (80.0-98.0); NRBC Abs Auto 0.000 X10*3/uL (0.0-0.012); NRBC Pct Auto 0.0 /100WBC (0.0-0.2); Platelet Count 319 X10*3/uL (160-400); Red Blood Count 4.46 X10*6/uL (4.20-5.50); White Blood Count 8.7 X10*3/uL (4.8-10.8)
[2025-03-25 08:21] LABS: Alanine Aminotransferase 18 U/L (0-31); Albumin Level 4.1 g/dL (3.5-5.0); Alkaline Phosphatase 95 U/L (39-117); Anion Gap 11 (12-20); Aspartate Amino Transferase 25 U/L (5-31); Blood Urea Nitrogen 13 mg/dL (9-16); Calcium 8.7 mg/dL (8.4-10.2); Carbon Dioxide 23 mmol/L (22-29); Chloride 106 mmol/L (96-108); Cholesterol 147 mg/dL (<200); Estimated Glomerular Filt Rate > 60; HDL Cholesterol 60 mg/dL (>40); Iron 88 mcg/dL (30-160); Percent Iron Saturation 21 % (15-50); Potassium 4.0 mmol/L (3.3-5.1); Sodium 136 mmol/L (135-145); Total Iron Binding Capacity 420 mcg/dL (228-428); Total Protein 6.8 g/dL (6.5-8.0); Triglycerides 87 mg/dL (<150); Unsaturated Iron Binding 332 ug/dL
[2025-03-25 08:28] LABS: Microalbum/Creatinine Ratio Ur 8.7 ug/mg cr (<30)
[2025-03-25 08:39] LABS: Thyroid Stimulating Hormone 3.02 uIU/mL (0.32-4.0)
[2025-03-25 08:43] LABS: Folate 11.6 ng/mL (> or = 4.0); Vitamin B12 208 pg/mL (200-900)
== END 2025-03-25 07:15 | disposition home or self-care (01) ==
LOC: HO.LAB 07:14
PROVIDERS: PCP Internal Medicine; Visit Provider Internal Medicine
DX: E53.8 Deficiency of other specified B group vitamins (principal); D64.9 Anemia, unspecified; E78.5 Hyperlipidemia, unspecified; E55.9 Vitamin D deficiency, unspecified; R80.9 Proteinuria, unspecified; R53.83 Other fatigue
CPT/HCPCS: 36415; 80053; 80061; 82043; 82306; 82570; 82607; 82746; 83540; 84443; 85025

== ENCOUNTER 2025-03-27 14:51 | Outpatient (AMB) | payer OTHER, SELFPAY ==
[2025-03-27 15:04] VITALS: BP 110/80; PULSE 81; RESP 18; TEMP 36.3; O2SAT 99; BMI 30.7
--- NOTE | 2025-03-27 15:04 | MHC.PC.OV ---
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 Technician Required: No Accompanied by: Self / Same As Patient Allergies No Known Allergies Allergy (Verified 03/27/25 15:22) Medication List - Last Reconciled 03/27/25 by Ana Winter MD albuterol sulfate 90 mcg/actuation 1 inh inhalation QID PRN atorvastatin 20 mg PO BEDTIME 90 days azithromycin 250 mg PO DAILY 5 days blood pressure test kit-large (Advocate Blood Pressure Monitor kit) As directed blood sugar diagnostic (FreeStyle Test strips) Use 1 test strip twice a day blood-glucose meter (FreeStyle Lite Meter kit) As directed cyclobenzaprine 10 mg PO BEDTIME 30 days fluticasone propionate 50 mcg/actuation 1 spray intranasal DAILY 30 days ibuprofen 800 mg PO Q8H PRN 30 days lancets (FreeStyle Lancets) Use 1 lancet once a day lisinopril 5 mg PO DAILY 90 days loratadine 10 mg PO DAILY 90 days metformin 1,000 mg PO BID 90 days omeprazole 20 mg PO DAILY 90 days semaglutide (Ozempic) 2 mg (0.75 mL) subcut QWEEK 4 weeks sennosides (Senna Laxative) 17.2 mg (2 x 8.6 mg) PO BEDTIME PRN 30 days zolpidem 10 mg PO BEDTIME PRN 30 days Tobacco use date assessed: 03/27/25 Dental Screening Dental Screen Date: 03/27/25 Did you have a dental visit in the last 12 months?: No Did you have a dental problem in the last 6 months where you did not have access to dental care?: No Was dental information given to patient?: Patient has dentist HPI HPI Comments History of Present Illness Details The patient is a 40-year-old female presenting for a follow-up visit for management of chronic conditions and review of laboratory results. The patient has a history of type 2 diabetes managed with metformin 1000 mg twice daily and Ozempic 2 mg, though she has not had the Ozempic recently as it is awaiting prior authorization. Her other chronic conditions include hypertension, managed with lisinopril 5 mg, and hypercholesterolemia, managed with atorvastatin 20 mg. She also uses cyclobenzaprine as needed for musculoskeletal pain, loratadine for allergies, omeprazole for acidity, and Senna for constipation. The patient reports no known drug allergies. Recent lab work revealed a fasting blood sugar of 266 mg/dL and a hemoglobin A1c of 7.9%. Her vitamin D level was low at 28.2 ng/mL, and her vitamin B12 level was also noted to have decreased, which is a possible side effect of metformin. Other lab results, including CBC, renal function, calcium, iron, liver enzymes, and cholesterol, were all normal. A thyroid panel, ordered due to complaints of tiredness, was normal. The patient reports significant stress and symptoms of chest tightness related to the process of buying a house. She has completed her mammogram for the year. 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 Mother Diabetes mellitus Essential hypertension Stroke Hypothyroidism Coronary artery disease Mental health disorder Social History Housing: Apartment Alcohol intake: current Alcohol intake frequency: holidays/special occasions only Alcohol type: wine Patient Tobacco Use Status: Former Tobacco user Tobacco use type: Cigarette e-Cigarette/Vaping Use: Never Used Second Hand Smoke Exposure: No service: No Current occupational status: employed Current occupational exposures/hazards: No Cognitive needs: No Hearing needs: No Vision needs: No Questionnaire PHQ-9 Over the last 2 weeks, how often have you been bothered by any of the following problems? 1. Little interest or pleasure in doing things: not at all 2. Feeling down, depressed, or hopeless: not at all 3. Trouble falling or staying asleep, or sleeping too much: several days 4. Feeling tired or having little energy: not at all 5. Poor appetite or overeating: several days 6. Feeling bad about yourself - or that you are a failure or have let yourself or your family down: not at all 7. Trouble concentrating on things, such as reading the newspaper or watching television: not at all 8. Moving or speaking so slowly that other people could have noticed. Or the opposite - being so fidgety or restless that you have been moving around a lot more than usual: not at all 9. Thoughts that you would be better off or of hurting yourself in some way: not at all Total score: 2 Depression Screening Interpretation: Negative Depression Screening Done: Yes 24268 - PHQ-9 Billing: Yes Source: Developed by Drs. Luiz Karimi, Maine Caputo, Dieudonne Smith and colleagues, with an educational sreekanth from [employer]. Thrive Questionnaire Date Thrive assessed: 07/26/24 I am a: Patient What is your living situation today?: I have a steady place to live Within the past 12 months, did the food you bought not last and you didn't have the money to get more?: Never true Within the past 12 months, did you worry whether your food would run out before you got money to buy more?: Never true Do you have trouble paying for medicines?: I choose not to answer this question Do you have trouble getting transportation to medical appointments?: No Do you have trouble paying your heating and electricity bill?: I choose not to answer this question Do you have trouble taking care of your child, family member or friend?: No Do you have trouble with day-to-day activities such as bathing, preparing meals, shopping, managing finances, etc.?: No Are you currently unemployed and looking for a job?: No Are you interested in more education?: No Please select the resources that you would like help with: None Currently or been in a relationship where the following occur: No concerns reported THRIVE Score: 0 TR-7 AMB Questionnaire TR-7 Date TR - 7 assessed: 07/26/24 Source: Developed by Drs. Luiz Karimi, Maine Caputo, Dieudonne Smith and colleagues, with an educational sreekanth from [employer]. Review of Systems Const All systems reviewed & are unremarkable except as noted in HPI and below Card Denies chest pain at rest, Denies chest pain with activity, Denies edema, Denies irregular heart rhythm, Denies claudication, Denies dyspnea, Denies dyspnea on exertion, Denies orthopnea, Denies paroxysmal nocturnal dyspnea and Denies slow heart rate Resp Denies cough, Denies dyspnea and Denies dyspnea on exertion Physical exam (Primary Care) Vital Signs: Last Vital Signs Temp 97.3 F 03/27/25 15:04 Pulse 81 03/27/25 15:04 Resp 18 03/27/25 15:04 BP 110/80 03/27/25 15:04 Pulse Ox 99 03/27/25 15:04 Oxygen Delivery Method Room Air 03/27/25 15:04 BMI result Body Mass Index 30.7 BMI Assessment/Plan discussion: High BMI High, discussed plan: lifestyle, weight reduction, dietary and physical activity Tobacco/Smoking Status: Tobacco use Status Tobacco use date assessed 03/27/25 03/27/25 15:11 Patient Tobacco Use Status Former Tobacco user 03/27/25 15:11 Tobacco use type Cigarette 03/27/25 15:11 e-Cigarette/Vaping Use Never Used 03/27/25 15:11 PHQ-9: PHQ-9 Score PHQ-9: Total score 2 03/27/25 16:55 Depression Screening Interpretation: Negative Thrive Assessment: Date of Thrive Assessment Date Thrive assessed 07/26/24 03/27/25 15:11 Currently or been in a relationship where the following occur: No concerns reported Resp Effort & Inspection: normal respiratory effort Auscultation: clear to auscultation bilaterally Cardio Jugular venous distension: no JVD Rate: regular rate Rhythm: regular rhythm Heart sounds: S1 normal heart sound present and S2 normal heart sound present Extrem General: Yes full ROM Office Procedures Flu Questionnaire Does the patient have a severe egg allergy?: No Does the patient have severe life threatening allergies?: No Does the patient have a fever or illness today?: No Has the patient ever had Guillain-Redding Syndrome?: No Has the patient ever had any past reaction to a flu shot?: No Results AMB Hemoglobin A1c AMB Hemoglobin A1c 7.9 % Last Edit by MONICA Kern on 03/27/25 16:55 Immunizations Fluarix [id number] (PF) 45 mcg (15 mcg x 3)/0.5 mL IM syringe Performing Provider: Ana Winter MD [facility] [place] [facility] Administered by: Ruby Olmos CMA on 03/27/25 15:37 Dose Route Admin Location Dispensed Lot Number Expiration Date NDC Financial Service Representative 0.5 mL IM Left Deltoid 0.5 mL [id number] 11/26/25 [id number] [employer] VIS Given Date VIS Provided VIS Publication Date 03/27/25 Single Vaccine 24 Eligibility Eligibility Date Funding Source Not [facility] Eligible 03/27/25 Private Results Reviewed Results Reviewed: Laboratory Last Values Hgb A1c (Clinic) 7.9 % (4.0-6.0) H 03/27/25 16:55 Coding Level of Care Code Est Pt Level 3 (73351) Diagnoses Type 2 diabetes mellitus with hyperglycemia, without long-term current use of insulin E11.65 Diabetes mellitus type: type 2 Diabetes mellitus terminal block assembler insulin use: without terminal block assembler use Diabetes mellitus complication status: with hyperglycemia Essential hypertension I10 Pure hypercholesterolemia E78.00 Additional Codes PHQ-9 - 43592 - PHQ-9 Billing: Yes ([id number]) Time Spent (min) 19 Assessment & Plan Assessment & Plan (1) Diabetes mellitus: Code(s): E11.9 - Type 2 diabetes mellitus without complications Category: Medical Qualifiers: Diabetes mellitus type: type 2 Diabetes mellitus terminal block assembler insulin use: without chcf use Diabetes mellitus complication status: with hyperglycemia Qualified Code(s): E11.65 - Type 2 diabetes mellitus with hyperglycemia (2) Essential hypertension: Code(s): I10 - Essential (primary) hypertension Category: Medical (3) Pure hypercholesterolemia: Code(s): E78.00 - Pure hypercholesterolemia, unspecified Category: Medical Plan Plan 1. Type 2 Diabetes Mellitus The patient's A1c is elevated at 7.9% with a high fasting blood glucose, attributed to a lapse in Ozempic therapy due to a prior authorization issue. A prior authorization for Ozempic 2 mg will be resubmitted. She will continue metformin 1000 mg twice daily. Follow-up labs are ordered for 4 months. 2. Vitamin B12 Deficiency The patient has a low vitamin B12 level, which may be related to her metformin use. She has been prescribed vitamin B12 with folic acid. Further testing to rule out pernicious anemia will be included in the next set of labs. 3. Vitamin D Deficiency The patient's vitamin D level is low at 28.2 ng/mL. A vitamin D supplement has been prescribed. 4. Hypercholesterolemia Cholesterol levels are excellent on current therapy. She will continue her current dose of atorvastatin 20 mg. 5. Anxiety The patient reports significant situational stress and anxiety with somatic symptoms of chest tightness related to the house-buying process. She was provided reassurance and advised to manage her stress. 6. Preventive Care The patient agreed to and will receive the influenza vaccine today. She is noted to be up-to-date with her mammogram screening. Orders: Orders Lipid Panel 4 Months E78.5 - Hyperlipidemia, unspecified Comprehensive [place]. Panel Fast 4 Months E11.65 - Type 2 diabetes mellitus with hyperglycemia Parietal Cell Antibody 4 Months E53.8 - Deficiency of other specified B group vitamins Intrinsic Factor Antibodies 4 Months E53.8 - Deficiency of other specified B group vitamins Influenza [id number] Immunization 03/27/25 Z23 - Encounter for immunization AMB Hemoglobin A1c 03/27/25 Z13.9 - Encounter for screening, unspecified Microalbumin, Random (w Creat) 4 Months R80.9 - Proteinuria, unspecified Vitamin B12 and Folate 4 Months E53.8 - Deficiency of other specified B group vitamins Vitamin D 25-OH Total 4 Months E55.9 - Vitamin D deficiency, unspecified Medications: New cholecalciferol (vitamin D3) 25 mcg PO DAILY 90 caps 1RF 90 days cyanocobalamin (vitamin B-12) 1,000 mcg PO DAILY 90 tabs 1RF 90 days folic acid 1 mg PO DAILY 90 tabs 1RF 90 days Refilled semaglutide (Ozempic) 2 mg (0.75 mL) subcut QWEEK 3 mL 3RF 4 weeks E11.65 - Type 2 diabetes mellitus with hyperglycemia
== END 2025-03-27 15:45 | disposition home or self-care (01) ==
LOC: HO.HMCH 14:52
PROVIDERS: PCP Internal Medicine; Visit Provider Internal Medicine
DX: Z23 Encounter for immunization (principal); Z13.9 Encounter for screening, unspecified

== ENCOUNTER → 2025-03-27 14:51 | Outpatient (BNVA) | payer OTHER, SELFPAY | PROVIDERS: PCP Internal Medicine; Visit Provider Internal Medicine | DX: E11.65 Type 2 diabetes mellitus with hyperglycemia (principal); I10 Essential (primary) hypertension; E78.00 Pure hypercholesterolemia, unspecified; E53.8 Deficiency of other specified B group vitamins; E55.9 Vitamin D deficiency, unspecified; Z23 Encounter for immunization; Z79.84 Long term (current) use of oral hypoglycemic drugs | CPT/HCPCS: 83036; 90471; 90656; 96127; 99212 ==